=== PATIENT | female | born 1990 | race Two or more races ===

== ENCOUNTER 2020-11-21 12:29 | Outpatient (REF) | payer MEDICAID, SELFPAY ==
[2020-11-21 13:31] LABS: MANUAL DIFF FLAG NO
[2020-11-21 13:35] LABS: Basophils Percent Auto 0.4 % (0-2); Eosinophils Absolute Auto 0.1 X10*3/uL (0.0-0.4); Hematocrit 48.5 % (37-47); Hemoglobin 16.1 g/dl (12.0-16.0); Imm Gran Abs Auto 0.01 X10*3/uL (0.00-0.03); Imm Gran Pct Auto 0.2 % (0.0-0.4); Lymphocytes Absolute Auto 2.5 X10*3/uL (1.2-4.9); Lymphocytes Percent Auto 45.3 % (20-40); Mean Corpuscular HGB Conc 33.2 g/dl (31.0-35.0); Mean Corpuscular Hemoglobin 31.3 pg (27.0-33.0); Mean Corpuscular Volume 94.4 fL (80-98); Mean Platelet Volume 9.9 fL (9.4-12.3); Monocytes Absolute Auto 0.3 X10*3/uL (0.1-1.2); Monocytes Percent Auto 5.5 % (2-11); Neutrophils Absolute Auto 2.5 X10*3/uL (2.0-8.3); Neutrophils Percent Auto 46.6 % (45-73); Platelet Count 296 X10*3/uL (160-400); Red Blood Count 5.14 X10*6/uL (4.20-5.50); Red Cell Distribution Width 12.4 % (11.0-16.0); White Blood Count 5.5 X10*3/uL (4.8-10.8)
[2020-11-21 13:57] LABS: Prothrombin Time 11.7 SEC (10.8-13.0)
[2020-11-21 13:59] LABS: Partial Thromboplastin Time 35.2 SEC (24.1-38.0)
[2020-11-21 14:02] LABS: Alanine Aminotransferase 40 U/L (0-31); Albumin Level 4.8 g/dL (3.5-5.0); Alkaline Phosphatase 74 U/L (39-117); Anion Gap 15 (12-20); Aspartate Amino Transferase 22 U/L (5-31); Bilirubin Total 0.7 mg/dL (0.0-1.0); Blood Urea Nitrogen 9 mg/dL (9-16); Calcium 9.4 mg/dL (8.4-10.2); Carbon Dioxide 26 mmol/L (22-29); Chloride 103 mmol/L (96-108); Estimated Glomerular Filt Rate > 60; Glucose Random 97 mg/dL (60-115); Potassium 4.6 mmol/l (3.3-5.1); Sodium 139 mmol/L (135-145); Total Protein 8.5 g/dL (6.5-8.0)
[2020-11-21 14:10] LABS: HCG Quantitative < 2 mIU/mL
[2020-11-22 10:25] LABS: HIV AB/AG Nonreactive (Nonreactive); HIV Num 1 0.19 S/CO (0.00-0.99)
== END 2020-11-21 12:30 | disposition home or self-care (01) ==
LOC: HO.LAB 12:29
PROVIDERS: Visit Provider Otolaryngology
DX: Z01.812 Encounter for preprocedural laboratory examination (principal)
CPT/HCPCS: 36415; 80053; 84702; 85025; 85610; 85730; 87389

== ENCOUNTER 2020-11-29 10:34 | Outpatient (REF) | payer MEDICAID, SELFPAY ==
[2020-11-29 11:23] LABS: Alanine Aminotransferase 36 U/L (0-31); Albumin Level 4.5 g/dL (3.5-5.0); Alkaline Phosphatase 65 U/L (39-117); Aspartate Amino Transferase 22 U/L (5-31); Bilirubin Direct 0.2 mg/dL (0.0-0.5); Bilirubin Total 0.6 mg/dL (0.0-1.0); Total Protein 7.7 g/dL (6.5-8.0)
== END 2020-11-29 10:35 | disposition home or self-care (01) ==
LOC: HO.LAB 10:34
PROVIDERS: Visit Provider Otolaryngology
DX: Z01.812 Encounter for preprocedural laboratory examination (principal)
CPT/HCPCS: 36415; 80076

== ENCOUNTER 2022-02-15 08:41 | Outpatient (REF) | payer MEDICAID, SELFPAY ==
[2022-02-15 09:09] LABS: MANUAL DIFF FLAG NO
[2022-02-15 09:28] LABS: Basophils Percent Auto 0.5 % (0-2); Eosinophils Absolute Auto 0.3 X10*3/uL (0.0-0.4); Eosinophils Percent Auto 4.1 % (0-4); Hematocrit 43.1 % (37.0-47.0); Hemoglobin 14.3 g/dl (12.0-16.0); Imm Gran Abs Auto 0.02 X10*3/uL (0.00-0.03); Imm Gran Pct Auto 0.3 % (0.0-0.4); Lymphocytes Absolute Auto 2.1 X10*3/uL (1.2-4.9); Lymphocytes Percent Auto 33.6 % (20-40); Mean Corpuscular HGB Conc 33.2 g/dl (31.0-35.0); Mean Corpuscular Hemoglobin 31.6 pg (27.0-33.0); Mean Corpuscular Volume 95.1 fL (80.0-98.0); Monocytes Absolute Auto 0.4 X10*3/uL (0.1-1.2); Monocytes Percent Auto 5.9 % (2-11); Neutrophils Absolute Auto 3.4 x10*3/uL (2.0-8.3); Neutrophils Percent Auto 55.6 % (45-73); Platelet Count 312 X10*3/uL (160-400); Red Blood Count 4.53 X10*6/uL (4.20-5.50); White Blood Count 6.1 X10*3/uL (4.8-10.8)
[2022-02-15 09:35] LABS: Prothrombin Time 11.4 SEC (9.9-13.0)
[2022-02-15 09:38] LABS: Partial Thromboplastin Time 34.4 SEC (24.1-38.0)
[2022-02-15 10:05] LABS: HCG Quantitative < 2 mIU/mL
[2022-02-15 10:15] LABS: Alanine Aminotransferase 28 U/L (0-31); Alkaline Phosphatase 65 U/L (39-117); Anion Gap 11 (12-20); Aspartate Amino Transferase 19 U/L (5-31); Bilirubin Total 0.5 mg/dL (0.0-1.0); Blood Urea Nitrogen 13 mg/dL (9-16); Calcium 9.2 mg/dL (8.4-10.2); Carbon Dioxide 26 mmol/L (22-29); Chloride 105 mmol/L (96-108); Estimated Glomerular Filt Rate > 60; Glucose Random 102 mg/dL (60-115); Potassium 4.5 mmol/L (3.3-5.1); Sodium 137 mmol/L (135-145); Total Protein 7.4 g/dL (6.5-8.0)
[2022-02-17 09:06] LABS: HIV AB/AG Nonreactive (Nonreactive); HIV Num 1 0.07 S/CO (0.00-0.99)
[2022-02-23 01:57] LABS: Cotinine, U 3 ng/mL; Nicotine, U <2 ng/mL
== END 2022-02-15 08:42 | disposition home or self-care (01) ==
LOC: HO.LAB 08:41
PROVIDERS: PCP Family Medicine; Visit Provider Surgery
DX: Z01.812 Encounter for preprocedural laboratory examination (principal)
CPT/HCPCS: 80053; 80323; 84702; 85025; 85610; 85730; 87389

== ENCOUNTER 2022-02-19 15:15 | Outpatient (REF) | payer MEDICAID, SELFPAY ==
--- NOTE | ~2022-02-19 | XR_ITS ---
EXAMINATION: XR CHEST 2 VIEWS CLINICAL INFORMATION: Preprocedural examination. COMPARISON: Prior chest radiographs dated 08/25/2019. TECHNIQUE: Frontal and lateral views of the chest were obtained. FINDINGS: The heart, great vessels, pulmonary vasculature and mediastinum are normal. The lungs show no focal infiltrate, effusion or pneumothorax. There is no acute osseous abnormality. XR/XR chest 2V IMPRESSION: No active cardiopulmonary disease.
--- NOTE | 2022-02-19 15:20 | ECG_ITS ---
Test Reason : PREOP Blood Pressure : / mmHG Vent. Rate : 064 BPM Atrial Rate : 064 BPM P-R Int : 134 ms QRS Dur : 084 ms QT Int : 392 ms P-R-T Axes : 050 044 020 degrees QTc Int : 404 ms Normal sinus rhythm Normal ECG No previous ECGs available Referred By: Neena Lara Electronically Signed By:MAGALY VARELA MD
== END 2022-02-19 15:16 | disposition home or self-care (01) ==
LOC: HO.XRAY 15:15
PROVIDERS: PCP Family Medicine; Visit Provider Surgery
DX: Z01.812 Encounter for preprocedural laboratory examination (principal)
CPT/HCPCS: 71046; 93005

== ENCOUNTER 2022-02-24 14:24 | Outpatient (REF) | payer MEDICAID, SELFPAY ==
[2022-02-24 15:52] LABS: Appearance Urine CLEAR; Color Urine YELLOW; Glucose Urine UA NEG (NEG); Leukocyte Esterase Urine NEG (NEG); Nitrite Urine NEG (NEG); Specific Gravity - Urine 1.025 (1.005-1.025); Urine Blood NEG (NEG); Urine Ketones NEG (NEG); Urine Protein NEG (NEG-TRACE)
== END 2022-02-24 14:25 | disposition home or self-care (01) ==
LOC: HO.LAB 14:24
PROVIDERS: PCP Family Medicine; Visit Provider Surgery
DX: Z01.812 Encounter for preprocedural laboratory examination (principal); Z41.1 Encounter for cosmetic surgery
CPT/HCPCS: 81003

== ENCOUNTER 2023-02-12 09:16 | Outpatient (REF) | payer MEDICAID, SELFPAY ==
--- NOTE | 2023-02-12 09:20 | EMG_ITS ---
Left median and ulnar motor and sensory studies were performed. Left radial sensory study was performed and paraspinal muscles were tested with a needle. IMPRESSION: No significant abnormality noted on this study. MD ALEJANDRO Lugo/MICHAEL / [id number]
== END 2023-02-12 09:17 | disposition home or self-care (01) ==
LOC: HO.NEURO 09:16
PROVIDERS: PCP Family Medicine; Visit Provider Family Medicine
DX: R20.2 Paresthesia of skin (principal)
CPT/HCPCS: 95886; 95909

== ENCOUNTER 2023-08-17 12:36 | Outpatient (REF) | payer MEDICAID, SELFPAY ==
[2023-08-17 14:02] LABS: Estimated Average Glucose 100 mg/dL; Hemoglobin A1c % 5.1 % (<6.0)
== END 2023-08-17 12:37 | disposition home or self-care (01) ==
LOC: HO.HHCL 12:36
PROVIDERS: Visit Provider Family Medicine
DX: E66.9 Obesity, unspecified (principal)
CPT/HCPCS: 36415; 83036

== ENCOUNTER 2024-03-21 11:06 | Outpatient (REF) | payer MEDICAID, SELFPAY ==
[2024-03-21 13:41] LABS: Hematocrit 41.9 % (37.0-47.0); Hemoglobin 14.2 g/dl (12.0-16.0); Mean Corpuscular HGB Conc 33.9 g/dl (31.0-35.0); Mean Corpuscular Hemoglobin 31.9 pg (27.0-33.0); Mean Corpuscular Volume 94.2 fL (80.0-98.0); Mean Platelet Volume 9.9 fL (9.4-12.3); Platelet Count 289 X10*3/uL (160-400); Red Blood Count 4.45 X10*6/uL (4.20-5.50); Red Cell Distribution Width 12.6 % (11.0-16.0); White Blood Count 4.5 X10*3/uL (4.8-10.8)
[2024-03-21 14:03] LABS: Estimated Average Glucose 88 mg/dL; Hemoglobin A1c % 4.7 % (<6.0); Total Hemoglobin (HGBA1C) 3542.3587 umol/L
[2024-03-21 14:21] LABS: Alanine Aminotransferase 41 U/L (0-31); Albumin Level 3.9 g/dL (3.5-5.0); Alkaline Phosphatase 68 U/L (39-117); Anion Gap 12 (12-20); Aspartate Amino Transferase 23 U/L (5-31); Bilirubin Direct 0.2 mg/dL (0.0-0.5); Bilirubin Total 0.4 mg/dL (0.0-1.0); Blood Urea Nitrogen 11 mg/dL (9-16); Calcium 9.6 mg/dL (8.4-10.2); Carbon Dioxide 26 mmol/L (22-29); Chloride 105 mmol/L (96-108); Cholesterol 140 mg/dL (<200); Estimated Glomerular Filt Rate > 60; Free T4 (Free Thyroxine) 0.85 ng/dL (0.71-1.85); Glucose Random 72 mg/dL (60-115); HDL Cholesterol 39 mg/dL (>40); LDL Cholesterol Calculated 88 mg/dL (<100); Sodium 139 mmol/L (135-145); Thyroid Stimulating Hormone 0.61 uIU/mL (0.32-4.0); Total Protein 7.5 g/dL (6.5-8.0); Triglycerides 66 mg/dL (<150)
[2024-03-22 04:16] LABS: HBS Num1 75.78 mIU/mL (0-7.99); HBsAGNum1 0.31 S/CO (0.00-0.99); HIV AB/AG Nonreactive (Nonreactive); HIV Num 1 0.04 S/CO (0.00-0.99); Hepatitis B Surface Antigen Negative (Negative); ~HepC Num1 0.12 S/CO (0.00-0.79); ~Hepatitis B Surface Antibody REACTIVE (Nonreactive); ~Hepatitis C Antibody Nonreactive (Nonreactive)
[2024-03-22 04:21] LABS: Hepatitis A Antibody IgG Nonreactive (Nonreactive); ~Hepatitis A Antibody IgG 0.45 S/CO (0.00-0.99)
[2024-03-22 11:54] LABS: CT PCR NOT DETECTED (Not Detect.); NG PCR NOT DETECTED (Not Detect.)
[2024-03-22 12:23] LABS: RPR Rapid Plasma Reagin NON-REACTIVE (NON-REACTIVE)
== END 2024-03-21 11:07 | disposition home or self-care (01) ==
LOC: HO.HHCL 11:06
PROVIDERS: Visit Provider Family Medicine
DX: Z00.00 Encounter for general adult medical examination without abnormal findings (principal); Z11.4 Encounter for screening for human immunodeficiency virus [HIV]; M54.42 Lumbago with sciatica, left side; M54.41 Lumbago with sciatica, right side; G89.29 Other chronic pain; R20.2 Paresthesia of skin; E16.2 Hypoglycemia, unspecified; L65.9 Nonscarring hair loss, unspecified; E66.9 Obesity, unspecified
CPT/HCPCS: 0353U; 36415; 80048; 80061; 80076; 82306; 83036; 84439; 84443; 85027; 86592; 86706; 86708; 86803; 87340; 87389

== ENCOUNTER 2024-09-06 15:52 | Outpatient (REF) | payer MEDICAID, SELFPAY ==
--- NOTE | ~2024-09-06 | XR_ITS ---
EXAMINATION: XR CERVICAL SPINE CLINICAL INFORMATION: Headache and neck pain without trauma COMPARISON: None TECHNIQUE: 3 views of the cervical spine were obtained. FINDINGS: There are no prevertebral soft tissue or bony abnormalities demonstrated. No compression fractures or subluxations are identified. Alignment is maintained at the atlanto-axial articulation. The disc spaces are preserved. No endplate changes are seen. The prevertebral soft tissues are normal. The foramina are patent. XR/XR cervical spine 3V IMPRESSION: Unremarkable examination. Electronically signed by: Lori Phillip MD 09/07/2024 03:30 PM EDT
== END 2024-09-06 15:53 | disposition home or self-care (01) ==
LOC: HO.HHCX 15:52
PROVIDERS: Visit Provider Internal Medicine
DX: R51.9 Headache, unspecified (principal)
CPT/HCPCS: 72040

== ENCOUNTER 2024-09-06 16:22 | Outpatient (REF) | payer MEDICAID, SELFPAY ==
[2024-09-06 17:36] LABS: MANUAL DIFF FLAG NO
[2024-09-06 18:00] LABS: Basophils Percent Auto 0.3 % (0-2); Eosinophils Absolute Auto 0.2 X10*3/uL (0.0-0.4); Eosinophils Percent Auto 2.6 % (0-4); Hematocrit 39.1 % (37.0-47.0); Hemoglobin 13.3 g/dl (12.0-16.0); Imm Gran Abs Auto 0.02 X10*3/uL (0.00-0.03); Imm Gran Pct Auto 0.3 % (0.0-0.4); Mean Corpuscular Hemoglobin 31.9 pg (27.0-33.0); Mean Corpuscular Volume 93.8 fL (80.0-98.0); Mean Platelet Volume 9.7 fL (9.4-12.3); Monocytes Absolute Auto 0.4 X10*3/uL (0.1-1.2); Monocytes Percent Auto 6.7 % (2-11); Neutrophils Absolute Auto 3.6 x10*3/uL (2.0-8.3); Neutrophils Percent Auto 58.1 % (45-73); Platelet Count 325 X10*3/uL (160-400); Red Blood Count 4.17 X10*6/uL (4.20-5.50); Red Cell Distribution Width 12.1 % (11.0-16.0); White Blood Count 6.2 X10*3/uL (4.8-10.8)
== END 2024-09-06 16:23 | disposition home or self-care (01) ==
LOC: HO.HHCL 16:22
PROVIDERS: Visit Provider Internal Medicine
DX: R51.9 Headache, unspecified (principal)
CPT/HCPCS: 36415; 85025

== ENCOUNTER 2024-12-21 14:33 | Outpatient (REF) | payer MEDICAID, SELFPAY ==
--- OUTSIDE RECORDS SUMMARY | 2024-12-21 15:44 | XMS_ITS | Encounter Summary ---
Author Organization [employer] Address [address] [facility] [address] [place] [address] Care Team Providers Care Beauty Shop Manager Name Role Phone Emilia Bee DO Primary Care Provider [phone] Encounter Details Date Type Department Care Team (Late st Contact Info) Description 12/21/2024 9:00 AM EST Office Visit [facility] MEDICINE [address] [place], [place] [phone] Emilia Bee DO [address] [place], [place] [phone] Chronic migraine (Primary Dx); Chronic bilateral low back pain without sciatica; Acute UTI; BMI 27.0-27.9,adult Social History Tobacco Use Types Packs/Day Years Used Date Smoking Tobacco: Never Passive Smoke Exposure: Never Smokeless Tobacco: Never Tobacco Cessation:Counseling Given: Not Answered Alcohol Use Standard Drinks/Week Comments Never 0 (1 standard drink = 0.6 oz pur e alcohol) Depression Answer Date Recorded Patient Health Questionnaire-9 Score 0 12/21/2024 Patient Health Questionnaire-9 Score 0 12/21/2024 Last PHQ-9: Questionnaire Data Not on file 0 12/21/2024 Housing Stability Answer Date Recorded What is your housing situation today? I have hilda figueroa 09/07/[address] you li ve. Do you have problems with any of the following? None of the above 09/07/2023 Food Insecurity Answer Date Recorded Within the past 12 months, y ou worried that your food would run out before you got money to buy more: Never True 09/07/2023 Within the past 12 months,th e food you bought just didn't last and you didn't have enough money to get more: Never True Transportation Answer Date Recorded In the past 12 months, has l ack of transportation kept you from medical appts, meetings, work or from getting things needed for daily living? No 09/07/2023 Utilities Answer Date Recorded In the past 12 months, has t he electric, gas, oil or water company threatened to shut off services in your home? No 09/07/2023 Depression Answer Date Recorded Patient Health Questionnaire-2 Score 0 12/21/2024 Internet Access Answer Date Recorded Internet Access Q1 Yes 12/21/2024 Internet Access Q2 Not on file 12/21/2024 Comments No Sex and Gender Information Value Date Recorded Sex Assigned at Female 09/15/2022 10:36 AM EDT Legal Sex Female 10:36 AM EDT Gender Identity Choose not to disclose 10:36 AM EDT Sexual Orientation Choose not to disclose 2021 10:36 AM EDT documented as of this encounter Last Filed Vital Signs Vital Sign Reading Time Taken Comments Blood Pressure 111/68 12/21/2024 9:02 AM EST Pulse 80 12/21/2024 9:02 AM EST Temperature 36.2 ??C (97.1 ??F) 12/21/2024 9:02 AM ES T Respiratory Rate 18 12/21/2024 9:02 AM EST Oxygen Saturation 99% 12/21/2024 9:02 AM EST Inhaled Oxygen Concentration - - Weight 72.3 kg (159 lb 6 oz) 12/21/2024 9:02 AM EST Height 162.6 cm (5' 4 ) 12/21/2024 9:02 AM EST Body Mass Index 27.36 12/21/2024 9:02 AM EST documented in this encounter Plan of Treatment Upcoming Encounters Date Type Department Care Team (Late st Contact Info) Description 01/20/2025 2:00 PM EST Office Visit [facility] MEDICINE [address] [place], [place] [phone] Denny Connors MD [address] [place] [address] Scheduled Orders Name Type Priority Associated Diagnoses Orde r Schedule Culture, Urine, Routine Microbiology Routine Acute UTI Ordered: 12/21/2024 documented as of this encounter Procedures Procedure Name Priority Date/Time Associated Diagnosis Comments POCT URINALYSIS DIPSTICK Routine 12/21/2024 9:51 AM EST Acute UTI documented in this encounter Results * (ABNORMAL) POCT Urinalysis (12/21/2024 9:51 AM EST) Color, UA Yellow Clarity, UA Cloudy Glucose, UA Trace Comment:100mg Bilirubin, UA Trace Comment:Small Ketones, UA Positive Comment:Trace Spec Grav, UA 1.020 Blood, UA Negative Negative, None Detected pH, UA 5.5 Protein, UA Trace Comment:100mg Urobilinogen, UA 4.0 Leukocytes, UA Trace Negative, Rare, Trace Comment:Large Nitrite, UA Positive(A) Negative, None Detected QC Media Lot # [id number] Lot# Expiration Date Urine 12/21/2024 9:51 AM EST Emilia Bee DO POINT OF CARE TEST ENTER/ALEXX T ORDERABLES Final Result documented in this encounter Visit Diagnoses Diagnosis Chronic migraine- Primary Chronic bilateral low back pain without sciatica Acute UTI Urinary tract infection, site not specified BMI 27.0-27.9,adult documented in this encounter Additional Health Concerns Assessment Noted Time PHQ-9 Depression Total Score: 0 12/21/19 25 9:06 AM EST documented as of this encounter Care Teams Beauty Shop Manager Relationship Specialty Start Date End Date Emilia Bee DO [address] [place] [address] PCP - General Family Medicine 10/10/20 documented as of this encounter
--- OUTSIDE RECORDS SUMMARY | 2024-12-21 15:44 | XMS_ITS | Encounter Summary ---
Author Organization [email or web address] Address [address] [facility] [address] [place] [address] Care Team Providers Care Billboard Erector Name Role Phone Emilia Bee DO Primary Care Provider [phone] Encounter Details Date Type Department Care Team (Late st Contact Info) Description 09/14/2023 Abstract [facility] MEDICINE [address] [place], [place] [phone] Emilia Bee DO [address] [place], [place] [phone] Social History Tobacco Use Types Packs/Day Years Used Date Smoking Tobacco: Never Passive Smoke Exposure: Never Smokeless Tobacco: Never Alcohol Use Standard Drinks/Week Comments Never 0 (1 standard drink = 0.6 oz pur e alcohol) Depression Answer Date Recorded Patient Health Questionnaire-9 Score 0 11/04/2022 Housing Stability Answer Date Recorded What is [...] Date Recorded Patient Health Questionnaire-2 Score 0 11/04/2022 Comments Unknown Sex and Gender Information Value Date Recorded Sex Assigned at Female 09/15/2022 10:36 AM EDT Legal Sex Female 10:36 AM EDT Gender Identity Choose not to disclose 10:36 AM EDT Sexual Orientation Choose not to disclose 2021 10:36 AM EDT documented as of this encounter Plan of Treatment Upcoming Encounters Date Type Department Care Team (Late st Contact Info) Description 01/20/2025 2:00 PM EST Office Visit [facility] MEDICINE [address] [place] [address] Denny Connors MD [address] [place] [address] documented as of this encounter Visit Diagnoses Not on filedocumented in this encounter Additional Health Concerns Assessment Noted Time PHQ-9 Depression Total Score: 0 11/04/20 22 9:56 AM EST documented as of this encounter Care Teams Billboard Erector Relationship Specialty Start Date End Date Emilia Bee DO [address] [place] [address] PCP - General Family Medicine 10/10/20 documented as of this encounter
--- OUTSIDE RECORDS SUMMARY | 2024-12-21 15:44 | XMS_ITS | Continuity of Care Document ---
Author Organization [facility] Address [address] [place] [address] Phone Care Team Providers Care Foreign Exchange Services Manager Name Role Phone CHS, Nurse Unavailable Unavailable [...] Diagnoses Date Provider Providers Copied on Encounter [facility] /[facility], [address] [place] [address], [address], [place] tel:[phone] C GRD FCM No Information 3 [facility] Nurse. [address] [place] [address], [id number] , [place]. tel:[phone] [facility] /[facility], [address] [place] [address], [address], [place] tel:[phone] C GRD FCM No Information 2 [facility] Nurse. [address] [place] [address], [id number] , [place]. tel: [phone] [facility] /[facility], [address] [place] [address], [address], [place] tel:[phone] C GRD FCM No Information 2 [facility] Nurse. [address] [place] [address], [id number] , [place]. tel: [phone] RC Options [facility] /[facility], [address] [place] [address], [address], [place] tel:[phone] P BMB Family Planning Test Options/Co unsel (chief complaint) Encounter for family planning adviceEncounter for test, result positiveEncounter for STI screening 2 PCS Other Non Billable. [address] [place] [address], [id number] , [place]. tel: [phone] [facility] /[facility], [address] [place] [address], [address], [place] tel:[phone] C GRD FCM No Information 0 [facility] Nurse. [address] [place] [address], [id number] , [place]. tel: [phone] Family History Family Member Type Diagnosis Age At Onset No Information Payers Payer name Insurance type Covered republican ID Yovani mitchell(s) [facility] [id number] Medicaid [id number] Social History Type Description Quantity Date Captured Comments Alcohol Use Details Unknown Caffeine Use Details Unknown Tobacco Use Status No Information Smoking Status No Information Sex Female Sexual Orientation Straight or heterosexual Jul Gender Identity Female Chief Complaint And Reason For Visit No Information Plan Of Treatment Date Type Action Status Goal Influenza vaccine. Due on due Goal HPV. Due on due Goal FIT-DNA. Due on due Goal Pap/HPV testing. Due on due Goal Unhealthy drug use screening . Due on due Goal Depression screening. Due on due Goal Health Literacy. Due on due Goal Self Management Goals. Due o n due Goal FOBT. Due on due Goal Colonoscopy. Due on due Goal CT-Colonography. Due on due Goal FIT. Due on due Goal Hepatitis C screening. Due o n due Goal Nutritional Screening Assess ment. Due on due Goal Dental exam. Due on due Goal HIV. Due on due Goal Tdap. Due on due Goal Hep C AB-8472. Due on due Goal Pap/HPV testing. Due on due Goal Health Literacy. Due on due Goal FOBT. Due on due Goal HIV. Due on due Goal Self Management Goals. Due o n due Goal Nutritional Screening Assess ment. Due on due Goal Influenza vaccine. Due on due Goal Depression screening. Due on due Goal Hep C [id number]. Due on due Goal Colonoscopy. Due on 022 due Goal Tdap. Due on due Goal Dental exam. Due on due Goal FIT. Due on due Goal Hepatitis C screening. Due o n due Goal CT-Colonography. Due on due Goal HPV. Due on due Goal FIT-DNA. Due on due Goal Unhealthy drug use screening . Due on due Goal Nutritional Screening Assess ment. Due on due Goal Pap/HPV testing. Due on due Goal Tdap. Due on due Goal Self Management Goals. Due o n due Goal Influenza vaccine. Due on due Goal Hep C AB-8472. Due on due Goal Depression screening. Due on due Goal Health Literacy. Due on due Goal Dental exam. Due on due Goal HIV. Due on due Referral Ordered: Obstetrics (related to Encounter for test, result positive) ordered History Of Present Illness Encounter Date Complaint History Of Prese nt Illness Test Options/Machine Assembler Supervisor U CG Positive and control acceptable, LMP [...]
--- OUTSIDE RECORDS SUMMARY | 2024-12-21 15:44 | XMS_ITS | Encounter Summary ---
Author Organization [employer] Address [address] [facility] [address] [place] [address] Care Team Providers Care Shiatsu Therapist Name Role Phone DmitriyEmilia brown Primary Care Provider [phone] Encounter Details Date Type Department Care Team (Late Contact Info) Description 12/04/2022 Orders Only [address] [address] Emilia Bee DO [address] [place] [phone] Social History Tobacco Use Types Packs/Day Years Used Date Smoking Tobacco: Never Passive Smoke Exposure: Never Alcohol Use Standard Drinks/Week Comments Never 0 (1 standard drink = 0.6 oz pur e alcohol) Depression Answer Date Recorded Patient Health Questionnaire-9 Score 0 11/04/2022 Depression Answer Date Recorded Patient Health Questionnaire-2 Score 0 11/04/2022 Comments Unknown Sex and Gender Information Value Date Recorded Sex Assigned at Female 09/15/2022 10:36 AM EDT Legal Sex Female 10:36 AM EDT Gender Identity Choose not to disclose 10:36 AM EDT Sexual Orientation Choose not to disclose 2021 10:36 AM EDT COVID-19 Exposure Response Date Recorded In the last 10 days, have yo u been in contact with someone who was confirmed or suspected to have Coronavirus/COVID-19? No / Unsure 11/26/2022 9:47 AM EST documented as of this encounter Plan of Treatment Upcoming Encounters Date Type Department Care Team (Late Contact Info) Description 01/20/2025 2:00 PM EST Office Visit [facility] MEDICINE [address] [place] [address] Denny Connors MD [address] [place] [address] documented as of this encounter Visit Diagnoses Not on filedocumented in this encounter Additional Health Concerns Assessment Noted Time PHQ-9 Depression Total Score: 0 11/04/20 22 9:56 AM EST documented as of this encounter Care Teams Shiatsu Therapist Relationship Specialty Start Date End Date Emilia Bee DO [address] [place] [address] PCP - General Family Medicine 10/10/20 documented as of this encounter
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
--- OUTSIDE RECORDS SUMMARY | 2024-12-21 15:44 | XMS_ITS | Encounter Summary ---
Author Organization [employer] Address [address] [facility] [address] [place] [address] Care Team Providers Care Bargeman Name Role Phone Emilia Bee DO Primary Care Provider [phone] Encounter Details Date Type Department Care Team (Latest Contact Info) Description 12/21/2024 Travel Social History Tobacco Use Types Packs/Day Years [...] Description 01/20/2025 2:00 PM EST Office Visit [facility] [address] [place] [address] Denny Connors MD [address] [place] [address] documented as of this encounter Visit Diagnoses Not on filedocumented in this encounter Additional Health Concerns Assessment Noted Time PHQ-9 Depression Total Score: 0 12/21/19 25 9:06 AM EST documented as of this encounter Care Teams Bargeman Relationship Specialty Start Date End Date Emilia Bee DO [address] [place] [address] PCP - General Family Medicine 10/10/20 documented as of this encounter
--- OUTSIDE RECORDS SUMMARY | 2024-12-21 15:44 | XMS_ITS | Clinical Summary ---
Author Organization [facility] Address [address] [place] [address] Care Team Providers Care Scaffold Erector Name Role Phone DmitriyEmilia brown Primary Care Provider [phone] Medical History Medical History Date Comments Obesity DX:Obesity History of gestational diabetes DX:History of gestational diabetes PCOS (polycystic ovarian syndrome) DX:PCOS (polycystic ovarian syndrome) Chronic bilateral low back pain DX:Chronic bilateral low back pain Social History Tobacco Use Types Packs/Day Years Used Date Smoking Tobacco: Never Smokeless Tobacco: Never Sex and Gender Information Value Date Recorded Sex Assigned at Not on file Gender Identity Not on file Sexual Orientation Not on file Obstetrics History Last Filed Vital Signs Vital Sign Reading Time Taken Comments Blood Pressure - - Pulse - - Temperature - - Respiratory Rate - - Oxygen Saturation - - Inhaled Oxygen Concentration - - Weight 80.8 kg (178 lb 3.2 oz) 04/24/2023 2:58 P M EDT Height 162.6 cm (5' 4 ) 04/24/2023 2:58 PM EDT Body Mass Index 30.59 04/24/2023 2:58 PM EDT Plan of Treatment Health Maintenance Due Date Last Done Comments Cervical Cancer Screening: P ap Smear 02/06/2012 Cholesterol Screening (Lipid Panel) 10/19/2022 Depression Screening 10/19/2022 HIV Screening 10/19/2022 Hepatitis C Screening 10/19/2022 Social Influencers of Health Screening 10/19/2022 Hepatitis B Vaccines (2 of 3 - 19+ 3-dose series) 05/04/2023 04/06/2023 DTaP,Tdap,and Td Vaccines (2 - Td or Tdap) 12/06/2023 12/06/2013 COVID-19 Vaccine (3 - 2023-2 5 season) 2024 01/14/2022, 12/24/2021 Influenza Vaccine (#1) 2024 9, 08/11/2013 Varicella Vaccines Aged Out 03/23/2019 No longer eligible based on patient's age to complete this topic MMR Vaccines Aged Out 04/06/2023, 03/23/2019 No longer eligible based on patient's age to complete this topic HIB Vaccines Aged Out No longer eligi ble based on patient's age to complete this topic HPV Vaccines Aged Out No longer eligi ble based on patient's age to complete this topic Hepatitis A Vaccines Aged Out No long er eligible based on patient's age to complete this topic IPV Vaccines Aged Out No longer eligi ble based on patient's age to complete this topic Meningococcal ACWY Vaccine Aged Out N o longer eligible based on patient's age to complete this topic Pneumococcal Vaccine: Pediatrics (0 to 5 Years) and At-Risk Patients (6 to 64 Years) Aged Out No longer eligible b ased on patient's age to complete this topic RSV Immunization Patients Under 20 months Aged Out No longer eligible b ased on patient's age to complete this topic Care Teams Scaffold Erector Relationship Specialty Start Date End Date Emilia Bee DO [address] [place] [address] PCP - General 04/16/23
--- OUTSIDE RECORDS SUMMARY | 2024-12-21 15:44 | XMS_ITS | Encounter Summary ---
Author Organization [employer] Address [address] [facility] 7t [place] [address] Care Team Providers Care Spectrographic Analyst Name Role Phone YefriEmilia gupta Primary Care Provider [phone] Encounter Details Date Type Department Care Team (Late Contact Info) Description 11/11/[address] [phone] Emilia Bee DO [address] [place] [address] [phone] Social History Tobacco Use Types Packs/Day Years [...] suspected to have Coronavirus/COVID-19? No / Unsure 11/04/2022 9:44 AM EST documented as of this encounter Plan of Treatment Upcoming Encounters Date Type Department Care Team (Late Contact Info) Description 01/20/2025 2:00 PM EST Office Visit [address] [phone] Denny Connors MD [address] [place] [address] documented as of this encounter Visit Diagnoses Not on filedocumented in this encounter Additional Health Concerns Assessment Noted Time PHQ-9 Depression Total Score: 0 11/04/20 22 9:56 AM EST documented as of this encounter Care Teams Spectrographic Analyst Relationship Specialty Start Date End Date Emilia Bee DO [address] [place] [address] PCP - General Family Medicine 10/10/20 documented as of this encounter
--- OUTSIDE RECORDS SUMMARY | 2024-12-21 15:44 | XMS_ITS | Encounter Summary ---
Author Organization [employer] Address [address] [place] [address] [address] [place] [address] Care Team Providers Care Quenching Machine Operator Name Role Phone Emilia Bee DO Primary Care Provider [phone] Encounter Details Date Type Department Care Team (Late Contact Info) Description 04/08/2023 [facility] Information Management [address] [place] [address] Emilia Bee DO [address] [place] [address] Social History Tobacco Use Types Packs/Day Years [...] suspected to have Coronavirus/COVID-19? No / Unsure 04/06/2023 2:24 PM EDT documented as of this encounter Plan of Treatment Upcoming Encounters Date Type Department Care Team (Late Contact Info) Description 01/20/2025 2:00 PM EST Office Visit [facility] [address] [place] [address] Denny Connors MD [address] [place] [address] documented as of this encounter Visit Diagnoses Not on filedocumented in this encounter Additional Health Concerns Assessment Noted Time PHQ-9 Depression Total Score: 0 11/04/20 22 9:56 AM EST documented as of this encounter Care Teams Quenching Machine Operator Relationship Specialty Start Date End Date Emilia Bee DO [address] [place] [address] PCP - General Family Medicine 10/10/20 documented as of this encounter
== END 2024-12-21 14:34 | disposition home or self-care (01) ==
LOC: HO.HHCLNP 14:33
PROVIDERS: Visit Provider Family Medicine
DX: N39.0 Urinary tract infection, site not specified (principal)
CPT/HCPCS: 87086

== ENCOUNTER 2025-10-23 11:44 | Emergency (ER) | payer MEDICAID, SELFPAY ==
--- OUTSIDE RECORDS SUMMARY | 2023-02-12 08:52 | XMS_ITS | Continuity of Care Document ---
Author Organization [facility] Address [address] [place] [address] Phone Care Team Providers Care Tobacco Sprayer Name Role Phone CHS, Nurse Unavailable Unavailable Allergies, Adverse Reactions, Alerts Substance Reaction Status Criticality No Known Allergies Active No Inform ation Procedures Procedure Date care atrisk assessm care atrisk assessm Positive URINE TEST 2 RC Options RC STD Education RC HIV Education Counselor Visit Only A-SPECIMEN HANDLING As per patient privacy policy some of the clinical information may not be visible. Advance Directives Directive Yes / No Effective Date File Name No Information Encounters Encounter Description Practice Location Reason(s) For Visit Diagnoses Date Provider Providers Copied on Encounter [facility] /[facility], [address] [place] [address], [id number], [place] tel:[phone] C GRD FCM No Information 3 [facility] Nurse. [address] [place] [address], [id number] , [place]. tel:[phone] [facility] /[facility], [address] [place] [address], [address], [place] tel:[phone] C GRD FCM No Information 2 [facility] Nurse. [address] [place] [address], [id number] , [place]. tel: [phone] [facility] /[facility], [address] [place] [address], [address], [place] tel:[phone] C GRD FCM No Information 2 [facility] Nurse. [address] [place] [address], [id number] , [place]. tel: [phone] RC Options [facility] /[facility], [address] [place] [address], [address], [place] tel:[phone] P BMB Family Planning Test Options/Co unsel (chief complaint) Encounter for family planning adviceEncounter for test, result positiveEncounter for STI screening 2 PCS Other Non Billable. [address] [place] [address], [id number] , [place]. tel: [phone] [facility] /[facility], [address] [place] [address], [address], [place] tel:[phone] C GRD FCM No Information 0 [facility] Nurse. [address] [place] [address], [id number] , [place]. tel: [phone] Family History Family Member Type Diagnosis Age At Onset No Information Payers Payer name Insurance type Covered republican ID Yovani whittenvirgie(s) [facility] [id number] Medicaid [id number] Social History Type Description Quantity Date Captured Comments Alcohol Use Details Unknown Caffeine Use Details Unknown Tobacco Use Status No Information Smoking Status No Information Sex Female Sexual Orientation Straight or heterosexual Jul Gender Identity Female Chief Complaint And Reason For Visit No Information Plan Of Treatment Date Type Action Status Goal FIT-DNA. Due on due Goal Health Literacy. Due on due Goal Self Management Goals. Due o n due Goal FOBT. Due on due Goal Colonoscopy. Due on [address]-Colonography. Due on due Goal Pap/HPV testing. Due on due Goal Unhealthy drug use screening . Due on due Goal Depression screening. Due on due Goal Influenza vaccine. Due on due Goal HPV. Due on due Goal FIT. Due on due Goal Hep C AB-8472. Due on due Goal Hepatitis C screening. Due o n due Goal Nutritional Screening Assess ment. Due on due Goal Dental exam. Due on 023 due Goal HIV. Due on due Goal Tdap. Due on due Goal Pap/HPV testing. Due on due Goal Influenza vaccine. Due on Oc due Goal Depression screening. Due on due Goal Hep C [id number]. Due on due Goal Colonoscopy. Due on 022 due Goal Health Literacy. Due on due Goal FOBT. Due on due Goal HIV. Due on due Goal Self Management Goals. Due o n due Goal Nutritional Screening Assess ment. Due on due Goal Tdap. Due on due Goal FIT-DNA. Due on due Goal Unhealthy drug use screening . Due on due Goal Dental exam. Due on due Goal FIT. Due on due Goal Hepatitis C screening. Due o n due Goal CT-Colonography. Due on due Goal HPV. Due on due Goal Hep C [id number]. Due on due Goal Influenza vaccine. Due on due Goal Self Management Goals. Due o n due Goal Tdap. Due on due Goal Pap/HPV testing. Due on due Goal Nutritional Screening Assess ment. Due on due Goal Depression screening. Due on due Goal Health Literacy. Due on due Goal Dental exam. Due on due Goal HIV. Due on due Referral Ordered: Obstetrics (related to Encounter for test, result positive) ordered History Of Present Illness Encounter Date Complaint History Of Prese nt Illness Test Options/Optimization Manager U CG Positive and control acceptable, LMP 05/29/2022 RAVINDRA 03/05/23 Pt states seeking . All options discussed. Patient firm in her decision to continue and raise. Encouraged prompt care and vitamins with folic acid. Pt consult on negative impact of smoking/drugs/alcohol consumption/lead and other toxic chemicals/substances and exposure to x-rays. Nutrition pamphlet discussed and given. Patient counseled on OTC meds, STI/HIV- condoms declined. Pt referred to ER if any unusual cramping or bleeding occurs. Verification of given. Pt referred for WIC/MPE. BMB PNC HX declined- pt states will verify coverage with insurance first and call back to scheduled if needed. Discussed importance of STI testing when engaging in unprotected I/C. Pt. accepted to be tested for Chlamydia/Gonorrhoea- Urine sample sent to lab for processing. Instructions Date Instruction Additional Infor mation No Information Assessments Type Assessment Date No Information Patient Care Teams Name Effective Dates (start - stop) Status Members No Information
[2025-10-23 12:10] VITALS: BP 153/73; PULSE 88; RESP 16; TEMP 36.3; O2SAT 98; BMI 28.5
--- NOTE | 2025-10-23 12:16 | ED_ITS ---
HPI - General Adult General Chief complaint: General Medical Stated complaint: breast pain Time Seen by Provider: 10/23/25 16:49 History of Present Illness ED Provider: Mariel Browning NP HPI narrative: 35-year- old female, medical history that is significant for surgical placement of bilateral breast implants performed in [facility] in 2020, complicated by infection postoperatively, presents to the ED with her parents for evaluation reporting bilateral breast pain. Patient reports that she saw her primary care provider 3 days ago, who ordered her an outpatient mammogram, that is scheduled for November 14, 2025. She contacted the mammogram department today as she reportedly felt increasing pain over the weekend, most severe on the left side, and a lump. The mammogram department informed her that if there was a problem with the breast implants, they would be unable to perform the mammogram. The patient reportedly feels as though her breasts are very heavy, like she could milk a baby . She denies chance of . Reports that her primary care provider gave her a muscle relaxer and topical cream, which has been helping. Denies any fever, chills. Denies chest pain or pressure, shortness of breath, abdominal pain, nausea or vomiting, urinary complaints. The pain began about 1 week ago, there was no direct trauma to the breasts, or injury to the area to create such pain. Related Data Previous Rx's ?Medication ?Instructions ?Recorded oxycodone 5 mg tablet 5 mg PO Q8H PRN pain 5 days #10 10/23/25 tabs Allergies Allergy/AdvReac Type Severity Reaction Status Date / Time No Known Allergies Allergy Verified 10/23/25 12:13 Review of Systems 2 Review of Systems: ROS is otherwise negative unless mentioned in HPI. Physical Exam ED Exam Exam: Nursing notes and vital signs reviewed. Constitutional: Well-appearing, NAD. Alert. Oriented X3. Eyes: EOMI. ENT: Pharynx normal. Neck: Normal inspection. Neck supple. CVS: Pulses normal. Chest: Bilateral breasts with appearance of bottoming out of the implants. Soft, mobile, squishy material felt to the bottom of the bilateral breasts. Scars present externally to these locations. Respiratory: No respiratory distress. Skin: Skin warm and dry. Normal skin color. Extremities: No lower extremity edema. Neuro: Oriented X 3. No motor deficit. Vital Signs: Vital Signs - 24 hr 10/23/25 12:10 Temperature 97.4 F Pulse Rate 88 Respiratory Rate 16 Blood Pressure 153/73 H Pulse Oximetry 98 Oxygen Delivery Method Room Air BMI result Body Mass Index 28.5 Course Course Course Narrative: RME: 5 yold female healthy presents to the ED for bilateral breast pain, but especially on the left. patient feels mas/lump on breast. Patient is concerened due history of breast implants. labs, EKG, US ordered. 1:00pm. cryptologic technician technical called states ultrasound could not be done. First of all patient's went to [facility] who informed due to her having a breast splint she will need an outpatient MRI. Secondly or near ultrasound would not show anything what the implant and they are in a train to look for abnormalities in the breast implant. Patient will need outpatient workup. Medications Administered Discontinued Medications Generic Name Dose Route Start Last Admin Trade Name Freq PRN Reason Stop Dose Admin Acetaminophen 975 mg 10/23/25 17:29 10/23/25 17:35 Acetaminophen 325 Mg Tablet PO 10/23/25 17:30 975 mg ONCE ONE Administration Oxycodone HCl 5 mg 10/23/25 17:29 10/23/25 17:34 Oxycodone Hcl Immed Release 5 Mg Tablet PO 10/23/25 17:30 5 mg ONCE ONE Administration Medical Decision Making Medical Decision Making MDM Narrative: 5:26 PM 10/23/2025 (Mariel Browning, JJ): Upon my assessment, she overall appears well , though bilaterally it does appear that she has the bottoming out presentation of both implants. There is soft, squishy, mobile material to the bilateral bottom of the breasts, and her nipples are higher riding than to be expected. Additionally, she has external scarring of the skin bilaterally on the underside of the breast tissue, where she tells me she has had previous infections/ her initial postoperative infection. She reports that the pain is worse when trying to lie flat in the evening. There is no palpable mass, there is no firmness, no lump Onto either breast. When she lies flat, it does appear that the implants move up higher on the chest. She tells me this causes the most pain. Clinically I have no concern for infection, there is no redness, warmth. Presentation is in the absence of fever, chills. Her pain is likely due to breast implant discomfort. I have provided her a dose of oxycodone, Tylenol while in the ED as she has already trialed oral NSAIDs as well as topical creams, muscle relaxers. I recommended that she follows up with her primary care provider tomorrow, and request that they schedule an outpatient MRI. I did consider performing CT imaging of the chest while in the ED, but this would not visualize the breast implants appropriately or aid in diagnosis. The triage provider did attempt to order breast US which cannot be done in our ED. Given there is no signs of infection, there is no indication for additional workup in the ED. She can be managed outpatient with PCP, breast surgery, and have an outpatient MRI and mammogram. I do recommend that she has a MRI prior to the mammogram, as if the implants are blocking breast tissue, mammogram we will not be helpful in diagnoses. I did provide her a prescription for oxycodone with recommendations to use this only as needed for severe pain. She is agreeable to plan of care. Provided return precautions to the ED. Differential Diagnosis Differential Diagnoses: The differential diagnosis associated with the presentation includes implant infection, implant malfunction/malposition/movement Admission/Observation Consideration of admission/observation: Escalation of care including admission/observation considered (Not indicated) Lab Data MDM Lab Attestation statement: I reviewed the patient's lab results. (Reassuring overall. ) 10/23/25 12:43 10/23/25 12:42 Labs: Lab Results 10/23/25 10/23/25 Range/Units 12:42 12:43 WBC 5.8 (4.8-10.8) X10*3/uL RBC 4.39 (4.20-5.50) X10*6/uL Hgb 13.7 (12.0-16.0) g/dl Hct 40.7 (37.0-47.0) % MCV 92.7 (80.0-98.0) fL MCH 31.2 (27.0-33.0) pg MCHC 33.7 (31.0-35.0) g/dl RDW 12.2 (11.0-16.0) % Plt Count 281 (160-400) X10*3/uL MPV 9.3 L (9.4-12.3) fL Immature Gran % (Auto) 0.2 (0.0-0.4) % Neut % (Auto) 55.6 (45-73) % Lymph % (Auto) 35.2 (20-40) % [place] % (Auto) 5.9 (2-11) % Eos % (Auto) 2.8 (0-4) % Baso % (Auto) 0.3 (0-2) % Lymph # (Auto) 2.0 (1.2-4.9) X10*3/uL [place] # (Auto) 0.3 (0.1-1.2) X10*3/uL Eos # (Auto) 0.2 (0.0-0.4) X10*3/uL Baso # (Auto) 0.0 (0.0-0.2) X10*3/uL Abs Immat Gran (auto) 0.01 (0.00-0.03) X10*3/uL Absolute Neuts (auto) 3.2 (2.0-8.3) x10*3/uL Absolute Nucleated RBC 0.000 (0.0-0.012) X10*3/uL Nucleated RBC % (auto) 0.0 (0.0-0.2) /100WBC Sodium 139 (135-145) mmol/L Potassium 4.2 (3.3-5.1) mmol/L Chloride 107 (96-108) mmol/L Carbon Dioxide 28 (22-29) mmol/L Anion Gap 8 L (12-20) BUN 13 (9-16) mg/dL Creatinine 0.67 (0.5-1.4) mg/dL Estim Creat Clear Calc 117.6 Estimated GFR > 60 Random Glucose 83 (60-115) mg/dL Calcium 9.4 (8.4-10.2) mg/dL Total Bilirubin 0.3 (0.0-1.0) mg/dL AST 39 H (5-31) U/L ALT 58 H (0-31) U/L Alkaline Phosphatase 73 (39-117) U/L Troponin I High Sens < 2.7 (<3.5-17.0) ng/L Total Protein 7.7 (6.5-8.0) g/dL Albumin 4.5 (3.5-5.0) g/dL Beta HCG, Quant < 2 mIU/mL Independent Interpretation I performed an independent interpretation of an: EKG Interpretation: Rate: 76 Rhythm: NSR Talmage: 48/33/45 Normal P waves. Normal CLEMENTE. Normal QRS complex. ST T wave : no dep, elev qTC: 414 prior studies: Similar The study has been interpreted contemporaneously by me. Independent Historian Clinical information obtained from an independent historian. History obtained from or confirmed by: Parent External Record Review External record reviewed: Outpatient record Chronic Conditions Patient?s care impacted by: Other (s/p breast implantation) Social Determinants Patient?s care significantly limited by Social Determinants of Health including: Problems related to primary support group Discharge Plan Discharge Clinical Impression: Pain in breast Patient Disposition: Home, Self-Care Instructions: Breast Implant Removal (DC) Additional Instructions: As we discussed, your lab work today was overall very reassuring. However, upon examination of your breasts, it does appear that your breast implants are bottoming out, meaning they are sitting at the underside of your breast causing discomfort. I have prescribed you a short course of Oxycodone tablets to help with the discomfort. Please use this in conjunction with Tylenol. Please follow up tomorrow with your primary care provider, and ask them to schedule you for an outpatient breast MRI. Please also follow up with the [facility] breast surgeons as soon as possible. With any worsening complaints, return back to the ED for reassessment. Prescriptions: New oxycodone 5 mg tablet 5 mg PO Q8H PRN (Reason: pain) 5 Days Qty: 10 0RF Rx Instructions: Partial Fill upon patient request. Referrals: [facility]ast [facility] [Provider Group] Emilia Bee DO [Primary Care Provider, Internal Medicine] Interventions: ED Discharge Assessment Last Done: 10/23/25 17:40 Discharge Date/Time: 10/23/25 17:42 Print Language: Polish
--- NOTE | 2025-10-23 12:20 | ECG_ITS ---
Test Reason : CP Blood Pressure : */* mmHG Vent. Rate : 76 BPM Atrial Rate : 76 BPM P-R Int : 130 ms QRS Dur : 84 ms QT Int : 368 ms P-R-T Axes : 48 33 45 degrees QTcB Int : 414 ms Normal sinus rhythm Nonspecific ST and T wave abnormality Abnormal ECG When compared with ECG of 19-Feb-2022 15:24, Nonspecific T wave abnormality now evident in Lateral leads Referred By: Oumar Rashid Electronically Signed By: MAGALY VARELA MD
[2025-10-23 12:50] LABS: MANUAL DIFF FLAG NO
[2025-10-23 12:52] LABS: Hematocrit 40.7 % (37.0-47.0); Hemoglobin 13.7 g/dl (12.0-16.0); Imm Gran Abs Auto 0.01 X10*3/uL (0.00-0.03); Imm Gran Pct Auto 0.2 % (0.0-0.4); Lymphocytes Absolute Auto 2.0 X10*3/uL (1.2-4.9); Mean Corpuscular HGB Conc 33.7 g/dl (31.0-35.0); Mean Corpuscular Hemoglobin 31.2 pg (27.0-33.0); Mean Corpuscular Volume 92.7 fL (80.0-98.0); NRBC Abs Auto 0.000 X10*3/uL (0.0-0.012); NRBC Pct Auto 0.0 /100WBC (0.0-0.2); Platelet Count 281 X10*3/uL (160-400); Red Blood Count 4.39 X10*6/uL (4.20-5.50); White Blood Count 5.8 X10*3/uL (4.8-10.8)
[2025-10-23 13:11] LABS: Alanine Aminotransferase 58 U/L (0-31); Albumin Level 4.5 g/dL (3.5-5.0); Alkaline Phosphatase 73 U/L (39-117); Anion Gap 8 (12-20); Aspartate Amino Transferase 39 U/L (5-31); Blood Urea Nitrogen 13 mg/dL (9-16); Calcium 9.4 mg/dL (8.4-10.2); Carbon Dioxide 28 mmol/L (22-29); Chloride 107 mmol/L (96-108); Creatinine Clr Calc Pharmacy 117.6; Estimated Glomerular Filt Rate > 60; Potassium 4.2 mmol/L (3.3-5.1); Sodium 139 mmol/L (135-145); Total Protein 7.7 g/dL (6.5-8.0)
[2025-10-23 13:13] LABS: Troponin-I High Sensitivity < 2.7 ng/L (<3.5-17.0)
[2025-10-23] MEDS: oxyCODONE HCl Immed Release 5 MG TABLET PO (17:34)
[2025-10-23 17:40] VITALS: BP 153/73; PULSE 88; RESP 16; TEMP 36.3; O2SAT 98
--- OUTSIDE RECORDS SUMMARY | 2025-10-24 02:23 | XMS_ITS | Encounter Summary ---
Author Organization [employer] Address [address] 7 [place] [address] Care Team Providers Care Rubber Gasket Inspector Trimmer Name Role Phone Cristal Emilia Primary Care Provider [phone] Encounter Details Date Type Department Care Team ([facility] st Contact Info) Description 10/23/2025 Orders Only GENERIC EXTERNAL DATA DEPARTMENT Provider, Generic External Data Social History Tobacco Use Types Packs/Day Years Used Date Smoking Tobacco: Never Passive Smoke Exposure: Never Smokeless Tobacco: Never Alcohol Use Standard Drinks/Week Comments Never 0 (1 standard drink = 0.6 oz pur e alcohol) Depression Answer Date Recorded Patient Health Questionnaire-9 Score 0 09/29/2025 Patient Health Questionnaire-9 Score 0 09/29/2025 Last PHQ-9: Questionnaire Data Not on file 1 11/29/2024 Housing Stability Answer Date Recorded What is [...] Date Recorded Patient Health Questionnaire-2 Score 0 09/29/2025 Internet Access Answer Date Recorded Internet Access [...] Care Team (Late st Contact Info) Description 10/24/2025 8:40 AM EST Office Visit [facility] [address], [place] [phone] documented as of this encounter Procedures Procedure Name Priority Date/Time Associated Diagnosis Comments CBC WITH AUTO DIFFERENTIAL Routine 10/23/2025 12:43 PM EST HIGH SENSITIVITY TROPONIN I Routine 10/23/2025 12:42 PM EST HCG, TOTAL, QN Routine 10/23/2025 12:42 PM EST COMPREHENSIVE METABOLIC PANEL Routine 10/23/2025 12:42 PM EST documented in this encounter Results * (ABNORMAL) CBC auto differential (10/23/2025 12:43 PM EST) White Blood Count 5.8 4.8 - 10.8 X10*3/uL [facility] Red Blood Count 4.39 4.20 - 5.50 X10*6/uL [facility] Hemoglobin 13.7 12.0 - 16.0 g/dl [facility] Hematocrit 40.7 37.0 - 47.0 % [facility] Mean Corpuscular Volume 92.7 80.0 - 98.0 fL [facility] Mean Corpuscular Hemoglobin 31.2 27.0 - 33.0 pg [facility] Mean Corpuscular HGB Conc 33.7 31.0 - 35.0 g/dl [facility] Red Cell Distribution Width 12.2 11.0 - 16.0 % [facility] Platelet Count 281 160 - 400 X10*3/uL [facility] Mean Platelet Volume 9.3(L) 9.4 - 12.3 fL [facility] Neutrophils Percent Auto 55.6 45 - 73 % [facility] Imm Gran Pct Auto 0.2 0.0 - 0.4 % [facility] Lymphocytes Percent Auto 35.2 20 - 40 % [facility] Monocytes Percent Auto 5.9 2 - 11 % [facility] Eosinophils Percent Auto 2.8 0 - 4 % [facility] Basophils Percent Auto 0.3 0 - 2 % [facility] NRBC Pct Auto 0.0 0.0 - 0.2 /100WBC [facility] Neutrophils Absolute Auto 3.2 2.0 - 8.3 x10*3/uL [facility] Imm Gran Abs Auto 0.01 0.00 - 0.03 X10*3/uL [facility] Lymphocytes Absolute Auto 2.0 1.2 - 4.9 X10*3/uL [facility] Monocytes Absolute Auto 0.3 0.1 - 1.2 X10*3/uL [facility] Eosinophils Absolute Auto 0.2 0.0 - 0.4 X10*3/uL [facility] Basophils Absolute Auto 0.0 0.0 - 0.2 X10*3/uL [facility] NRBC Abs Auto 0.000 0.0 - 0.012 X10*3/uL [facility] 10/23/2025 12:4 3 PM EST 10/23/2025 12:48 PM EST us Generic External Data Provider LAB BLOOD ORDERAB LES Final Result [facility] [address] [place] [phone] * hCG, Total, Quantitative (10/23/2025 12:42 PM EST) Pathologist [facility] HCG Quantitative <2 mIU/mL [facility] Comment:Weeks post LMP Appro ximate hCG(Last Menstrual Period) Range (mIU/ml)3 - 4 weeks 9 - 1304 - 5 weeks 75 - 2,6005 - 6 weeks 850 - 20,8006 - 7 weeks 4000 - 100,2007 - 12 weeks 11,500 - 289,32841 - 16 weeks 18,300 - 137,14186 - 29 weeks (2nd trimester) 1,400 - 53,33366 - 41 weeks (3rd trimester) 940 - 60,000The Hull B- hCG assay is used for the early detection ofpregnancy; it cannot be used to diagnose any conditionunrelated to . If a B-hCG level is not supportedby the clinical evidence, results should be confirmed by analternative method (qualitative urine hCG, for example). 10/23/2025 12:4 2 PM EST 10/23/2025 12:48 PM EST us Generic External Data Provider LAB BLOOD ORDERAB LES Final Result Performing Organization Address City/[facility]/ZIP Co de Phone Number [facility] [address] [place] [phone] * High Sensitivity Troponin I (10/23/2025 12:42 PM EST) [facility] TROPONIN I HIGH SENSITIVITY <2.7 <3.5 - 17.0 ng/L [facility] Comment:The Hull high sens itivity Troponin-I results should beused in conjunction with other diagnostic information suchas ECG, clinical observations and information, and patientsymptoms to aid in the diagnosis of ND. 10/23/2025 12:4 2 PM EST 10/23/2025 12:48 PM EST us Generic External Data Provider LAB BLOOD ORDERAB LES Final Result Performing Organization Address City/[facility]/ZIP Co de Phone Number [facility] [address] [place] [phone] * (ABNORMAL) Comprehensive Metabolic Panel (10/23/2025 12:42 PM EST) Sodium 139 135 - 145 mmol/L [facility] Potassium 4.2 3.3 - 5.1 mmol/L [facility] Chloride 107 96 - 108 mmol/L [facility] Carbon Dioxide 28 22 - 29 mmol/L [facility] Anion Gap 8(L) 12 - 20 [facility] Urea Nitrogen (BUN) 13 9 - 16 mg/dL [facility] Creatinine, Serum 0.67 0.5 - 1.4 mg/dL [facility] Creatinine Clr Calc Pharmacy 117.6 [facility] Comment:Provided height and weight: 162.56 cm,75.4 kg.eGFR (calculated from the MDRD study equation) and eCrCl(calculated from the Cockcroft-Gault equation) are based ondifferent parameters and may not yield comparable results.If eCrCl result is absurd, please check patient'sheight/weight. Estimated Glomerular Filt Rate >60 [facility] Comment:Chronic Kidney Disea se: Estimated GFR < 60 mL/min/1.65k8Zpakec Kidney Disease: Estimated GFR < 15 mL/min/1.73m2 Glucose 83 60 - 115 mg/dL [facility] Calcium 9.4 8.4 - 10.2 mg/dL [facility] Bilirubin, Total 0.3 0.0 - 1.0 mg/dL [facility] Aspartate Amino Transferase 39(H) 5 - 31 U/L [facility] Alanine Aminotransferase 58(H) 0 - 31 U/L [facility] Total Protein 7.7 6.5 - 8.0 g/dL [facility] Albumin Level 4.5 3.5 - 5.0 g/dL [facility] Alkaline Phosphatase 73 39 - 117 U/L [facility] 10/23/2025 12:4 2 PM EST 10/23/2025 12:48 PM EST us Generic External Data Provider LAB BLOOD ORDERAB LES Final Result [facility] [address] [place] [phone] documented in this encounter Visit Diagnoses Not on filedocumented in this encounter Additional Health Concerns Assessment Noted Time PHQ-9 Depression Total Score: 0 09/29/20 25 9:58 AM EST documented as of this encounter Care Teams Rubber Gasket Inspector Trimmer Relationship Specialty Start Date End Date Emilia Bee DO [address] [place] [address] PCP - General Family Medicine 10/10/20 documented as of this encounter
--- OUTSIDE RECORDS SUMMARY | 2025-10-24 02:23 | XMS_ITS | Encounter Summary ---
Author Organization [employer] Address [address] [place] [address] Care Team Providers Care Car Coupler Name Role Phone Cristal Emilia Primary Care Provider + [phone] Reason for Visit * Reason Comments Med Refill Encounter Details Date Type Department Care Team ([facility] st Contact Info) Description 01/16/2025 Refill [facility] [address], [place] [phone] Denny Connors MD [address] [place] [address] Folliculitis Social History Tobacco Use Types Packs/Day Years [...] Description 10/24/2025 8:40 AM EST Office Visit [facility] [address] [place] [phone] documented as of this encounter Visit Diagnoses Diagnosis Folliculitis Other specified disease of hair and hair follicles documented in this encounter Additional Health Concerns Assessment Noted Time PHQ-9 Depression Total Score: 0 12/21/19 25 9:06 AM EST documented as of this encounter Care Teams Car Coupler Relationship Specialty Start Date End Date Emilia Bee DO [address] [place] [phone] PCP - General Family Medicine 10/10/20 documented as of this encounter
--- OUTSIDE RECORDS SUMMARY | 2025-10-24 02:23 | XMS_ITS | Clinical Summary ---
Author Organization [facility] Address [address] [place] [address] Care Team Providers Care Garden Labourer Name Role Phone DmitriyEmilia brown Taiwo SHERMAN Primary Care Provider [phone] Medical History Medical History Date Comments Obesity DX:Obesity History of gestational diabetes DX:History of gestational diabetes PCOS (polycystic ovarian syndrome) DX:PCOS (polycystic ovarian syndrome) Chronic bilateral low back pain DX:Chronic bilateral low back pain Social History Tobacco Use Types Packs/Day Years Used Date Smoking Tobacco: Never Smokeless Tobacco: Never Comments Unknown Sex and Gender Information Value Date Recorded Sex Assigned at Not on file Legal Sex Female 11:38 PM EST Gender Identity Not on file Sexual Orientation Not on file Last Filed Vital Signs Vital Sign Reading [...] Cervical Cancer Screening: P ap Smear 02/06/2012 HPV Vaccines (1 - 3-dose SCD M series) 2018 Cholesterol Screening (Lipid Panel) 10/19/2022 HIV Screening 10/19/2022 Hepatitis C Screening 10/19/2022 Social Influencers of Health Screening 10/19/2022 Hepatitis B Vaccines (2 of 3 - 19+ 3-dose series) 05/04/2023 04/06/2023 DTaP,Tdap,and Td Vaccines (2 - Td or Tdap) 12/06/2023 12/06/2013 Depression Screening 11/16/2024 COVID-19 Vaccine (3 - 2024-2 6 season) 2025 01/14/2022, 12/24/2021 Influenza Vaccine (#1) 2025 9, 08/11/2013 RSV Immunization Adult Patients (1 - 1-dose 75+ series) 2066 Varicella Vaccines Aged Out 03/23/2019 No longer [...] patient's age to complete this topic Meningococcal B Vaccine Aged Out No l onger eligible based on patient's age to complete this topic Pneumococcal Vaccine: Pediatrics (0 to 5 Years) and At-Risk Patients (6 to 49 Years) Aged Out No longer eligible b ased on patient's age to complete this topic RSV Immunization Patients Under 20 months Aged Out No longer eligible b ased on patient's age to complete this topic Care Teams Garden Labourer Relationship Specialty Start Date End Date Emilia Bee DO [address] [place] [address] PCP - General 04/16/23
--- OUTSIDE RECORDS SUMMARY | 2025-10-24 02:23 | XMS_ITS | Clinical Summary ---
Author Organization [employer] Address [address] [place] [address] 7t [place] [address] Care Team Providers Care Mobile Designer Name Role Phone Cristal Emilia Primary Care Provider Allergies No known active allergies Medications Vit-Fe Fumarate-FA ( Vitamins) 28-0.8 MG tablet Take 1 tablet by mouth in the morning. 11/24/19 23 Active SEMAGLUTIDE, 1 MG/DOSE, SC Inject 1 mg under the skin 1 (one) time per week. Active cetirizine (ZyrTEC) 10 MG tablet Take 1 tablet (10 mg) by mouth Once per day. 90 tablet 3 07/14/20 24 Active amitriptyline (Elavil) 10 MG tablet Take 1 tablet (10 mg) by mouth at bedtime. 30 tablet 3 09/20/20 24 Active butalbital-joycelyn taminophen-caf feine 50-325-40 MG tabletIndicati ons:Acute intractable headache, unspecified headache type Take 1 tablet by mouth every 4 (four) hours if needed for headaches or migraine. 30 tablet 09/20/20 24 Active SUMAtriptan (Imitrex) 50 MG tabletIndicati ons:Acute intractable headache, unspecified headache type TAKE 1 TABLET AT ONSET OF MIGRAINE, MAY REPEAT AFTER 2 HOURS IF NEEDED. MAX 2 TABS/24 HOURS 5 tablet 10/06/20 24 Active Fluocinolone Acetonide Scalp ([place] /FS Scalp) 0.01 % oilIndications :Folliculitis Apply 3 time weekly with head cover at night 118.28 mL 1 10/28/20 24 Active Ketotifen Fumarate 0.035 % solution ADMINISTER 1 DROP INTO AFFECTED EYE(S) IF NEEDED IN THE MORNING AND AT BEDTIME (EYE ALLERGIES/ITC EDIN). 10 mL 1 01/18/20 25 Active traMADol (Ultram) 50 MG tabletIndicati ons:Chronic bilateral low back pain without sciatica Take 1 tablet (50 mg) by mouth if needed in the morning and at bedtime for severe pain for up to 28 days. 56 tablet 09/29/20 25 025 Active fluticasone (Flonase) 50 MCG/ACT nasal spray Administer 2 sprays into each nostril Once per day. Shake gently. Before first use, prime pump. After use, clean tip and replace cap. 16 g 11 10/18/20 25 026 Active omeprazole (PriLOSEC) [address] capsule Take 1 capsule (20 mg) by mouth before breakfast. Do not crush or chew. 90 capsule 3 10/18/20 25 Active tiZANidine (Zanaflex) 2 MG tablet Take 1 tablet (2 mg) by mouth if needed in the morning, at noon, and at bedtime for muscle spasms. 60 tablet 3 10/18/20 25 026 Active naproxen (Naprosyn) 500 MG tablet Take 1 tablet (500 mg) by mouth if needed in the morning and at bedtime for mild pain. 40 tablet 1 10/18/20 25 026 Active acetaminophen (Tylenol 8 Hour) 650 MG ER tablet Take 1 tablet (650 mg) by mouth every 8 (eight) hours if needed for mild pain. Do not crush, chew, or split. 40 tablet 1 10/18/20 25 026 Active Diclofenac Sodium 1 % gel Apply 2 g topically if needed in the morning, at noon, in the evening, and at bedtime (pain). 150 g 3 10/18/20 25 Active Diclofenac Sodium 1 % gel APPLY 2 GRAMS TO AFFECTED AREA EVERY MORNING AND BEDTIME NEEDED FOR PAIN 150 g 3 03/21/20 24 025 Discontinued fluticasone (Flonase) 50 MCG/ACT nasal spray Administer 2 sprays into each nostril Once per day. Shake gently. Before first use, prime pump. After use, clean tip and replace cap. 16 g 11 07/14/20 24 025 Discontinued(Re order (will not trigger notification to Pharmacy)) tiZANidine (Zanaflex) 2 MG tablet Take 1 tablet (2 mg) by mouth if needed in the morning, at noon, and at bedtime for muscle spasms. 60 tablet 3 12/21/19 25 025 Discontinued(Re order (will not trigger notification to Pharmacy)) omeprazole (PriLOSEC) [address] capsule TAKE 1 CAPSULE (20 MG) BY MOUTH BEFORE BREAKFAST DO NOT CRUSH OR CHEW 90 capsule 3 04/25/20 25 025 Discontinued(Re order (will not trigger notification to Pharmacy)) Hospital, Clinic, or Other Facility Administered Medication [...] CT of brain STAT given her c/o 10/10 headache that feels different than previous headaches. [...] PM vs surgery pending MRI -advised contact [facility] if sx change or worsen, she agrees with plans Assessment & Plan (02/27/2023 11:21 AM EDT): -encouraged standing doses of tylenol -trial naprosyn BID -retrial baclofen to help with mm spasm -trial diclofenac gel prn -referred to PT for eval -advised contact HH if no improvement BMI 27.0-27.9,adult 11/04/2022 Assessment [...] Encounters Date Type Department Care Team Description 10/23/2025 Travel 10/23/2025 Orders Only GENERIC EXTERNAL DATA DEPARTMENT Provider, Generic External Data 10/18/2025 11:30 AM EST Office Visit [address] [address] Emilia Bee DO Breast pain (Primary Dx) 10/18/2025 Travel 10/16/2025 Travel 10/16/[address] [address] Emilia Bee DO Nurse Triage 09/29/2025 10:00 AM EST Telemedicine [address] [address] Emilia Bee DO Chronic migraine (Primary Dx); Chronic gastroesophageal reflux disease; Chronic bilateral low back pain without sciatica 09/29/2025 Travel 09/27/[address] [facility] MEDICINE [address] [place] [phone] Emilia Bee DO Chart Prep 09/22/2025 Patient Outreach [facility] [address] [place] [address] Emilia Bee DO Pre-visit Planning (SDOH was already completed) 09/15/[address] [address] Emilia Bee DO June08/16/[address] [facility] MEDICINE [address] [place] [address] Emilia Bee DO Nurse Triage from Last 3 Months Immunizations Immunization Administration Dates Next Due Hep B, adult [...] Sign Reading Time Taken Comments Blood Pressure 113/73 10/23/2025 6:03 PM EST Pulse 85 10/23/2025 6:03 PM EST Temperature 36.4 C (97.5 F) 10/23/2025 6:03 PM EST Respiratory Rate 18 10/23/2025 6:03 PM EST Oxygen Saturation 100% 10/23/2025 6:03 PM EST Inhaled Oxygen Concentration - - Weight 74.8 kg (165 lb) 10/23/2025 6:03 PM EST Height 162.6 cm (5' 4 ) 10/18/2025 11:46 AM EST Body Mass Index 28.32 10/18/2025 11:46 AM EST Plan of Treatment Upcoming Encounters Date Type Department Care Team (Late st Contact Info) Description 10/24/2025 8:40 AM EST Office Visit [facility] [address] [place] [phone] Health Maintenance Due Date Last Done Comments Family Planning (PISQ) 2006 HPV Vaccines (1 - 3-dose series) 2006 Hepatitis A Vaccines (1 of 2 - Risk 2-dose series) 2010 DTaP/Tdap/Td Vaccines (2 - T d or Tdap) 12/06/2023 12/06/2013 COVID-19 Vaccine (2024-2 6 season) 2025 07/23/2022, 01/14/2022, 12/24/2021 Influenza Vaccine (#1) 2025 9, 10/25/2018, 08/11/2013 Alcohol/Substance Use Screening 12/21/2025 12/21/2024 SDOH Screening 12/21/2025 12/21/2024 Cervical Cancer Screening 07/25/2026 HPV/Cotest 07/25/2026 07/25/2021 Pap Smear 07/25/2026 07/25/2021, 07/25/2021 Depression Screening 09/29/2026 09/29/2025, 09/29/2025 Disability Screening 09/29/2026 09/29/2025 Tobacco Screening 10/18/2026 10/18/2025 Lipid Panel 03/21/2029 03/21/2024, 11/05/2022 Zoster Vaccines [...] Years) and At-Risk Patients (6 to 49) Years Aged Out No longer eligible b ased [...] AUTO DIFFERENTIAL Routine 10/23/2025 12:43 PM EST HCG, TOTAL, QN Routine 10/23/2025 12:42 PM EST HIGH SENSITIVITY TROPONIN I Routine 10/23/2025 12:42 PM EST COMPREHENSIVE METABOLIC PANEL Routine 10/23/2025 12:42 PM EST LIPID PANEL, STANDARD Routine 03/21/2024 11:53 AM [...] Relevant to Health Maintenance Results * (ABNORMAL) CBC auto differential (10/23/2025 12:43 PM EST) White Blood Count 5.8 4.8 - 10.8 X10*3/uL [facility] Red Blood Count 4.39 4.20 - 5.50 X10*6/uL [facility] Hemoglobin 13.7 12.0 - 16.0 g/dl [facility] Hematocrit 40.7 37.0 - 47.0 % [facility] Mean Corpuscular Volume 92.7 80.0 - 98.0 fL [facility] Mean Corpuscular Hemoglobin 31.2 27.0 - 33.0 pg [facility] Mean Corpuscular HGB Conc 33.7 31.0 - 35.0 g/dl [facility] Red Cell Distribution Width 12.2 11.0 - 16.0 % [facility] Platelet Count 281 160 - 400 X10*3/uL [facility] Mean Platelet Volume 9.3(L) 9.4 - 12.3 fL [facility] Neutrophils Percent Auto 55.6 45 - 73 % [facility] Imm Gran Pct Auto 0.2 0.0 - 0.4 % [facility] Lymphocytes Percent Auto 35.2 20 - 40 % [facility] Monocytes Percent Auto 5.9 2 - 11 % [facility] Eosinophils Percent Auto 2.8 0 - 4 % [facility] Basophils Percent Auto 0.3 0 - 2 % [facility] NRBC Pct Auto 0.0 0.0 - 0.2 /100WBC [facility] Neutrophils Absolute Auto 3.2 2.0 - 8.3 x10*3/uL [facility] Imm Gran Abs Auto 0.01 0.00 - 0.03 X10*3/uL [facility] Lymphocytes Absolute Auto 2.0 1.2 - 4.9 X10*3/uL [facility] Monocytes Absolute Auto 0.3 0.1 - 1.2 X10*3/uL [facility] Eosinophils Absolute Auto 0.2 0.0 - 0.4 X10*3/uL [facility] Basophils Absolute Auto 0.0 0.0 - 0.2 X10*3/uL [facility] NRBC Abs Auto 0.000 0.0 - 0.012 X10*3/uL [facility] 10/23/2025 12:4 3 PM EST 10/23/2025 12:48 PM EST us Generic External Data Provider LAB BLOOD ORDERAB LES Final Result [facility] [address] [place] [phone] * High Sensitivity Troponin I (10/23/2025 12:42 PM EST) TROPONIN I HIGH SENSITIVITY <2.7 <3.5 - 17.0 ng/L [facility] Comment:The [place] high sens itivity Troponin-I results should beused in conjunction with other diagnostic information suchas ECG, clinical observations and information, and patientsymptoms to aid in the diagnosis of NE. 10/23/2025 12:4 2 PM EST 10/23/2025 12:48 PM EST Generic External Data Provider LAB BLOOD ORDERAB LES Final Result Performing Organization Address [facility] de Phone Number [facility] [address] [place] [phone] * hCG, Total, Quantitative (10/23/2025 12:42 PM EST) HCG Quantitative <2 mIU/mL [facility] Comment:Weeks post LMP Appro ximate hCG(Last Menstrual Period) Range (mIU/ml)3 - 4 weeks 9 - 1304 - 5 weeks 75 - 2,6005 - 6 weeks 850 - 20,8006 - 7 weeks 4000 - 100,2007 - 12 weeks 11,500 - 289,74368 - 16 weeks 18,300 - 137,40130 - 29 weeks (2nd trimester) 1,400 - 53,81460 - 41 weeks (3rd trimester) 940 - 60,000The [place] B- hCG assay is used for the early detection ofpregnancy; it cannot be used to diagnose any conditionunrelated to . If a B-hCG level is not supportedby the clinical evidence, results should be confirmed by analternative method (qualitative urine hCG, for example). 10/23/2025 12:4 2 PM EST 10/23/2025 12:48 PM EST Generic External Data Provider LAB BLOOD ORDERAB LES Final Result Performing Organization Address [facility] Co de Phone Number [facility] [address] [place] [phone] * (ABNORMAL) Comprehensive Metabolic Panel (10/23/2025 12:42 PM EST) Pathologist [facility] Sodium 139 135 - 145 mmol/L [facility] Potassium 4.2 3.3 - 5.1 mmol/L [facility] Chloride 107 96 - 108 mmol/L [facility] Carbon Dioxide 28 22 - 29 mmol/L [facility] Anion Gap 8(L) 12 - 20 [facility] Urea Nitrogen (BUN) 13 9 - 16 mg/dL [facility] Creatinine, Serum 0.67 0.5 - 1.4 mg/dL [facility] Creatinine Clr Calc Pharmacy 117.6 [facility] Comment:Provided height and weight: 162.56 cm,75.4 kg.eGFR (calculated from the MDRD study equation) and eCrCl(calculated from the Cockcroft-Gault equation) are based ondifferent parameters and may not yield comparable results.If eCrCl result is absurd, please check patient'sheight/weight. Estimated Glomerular Filt Rate >60 [facility] Comment:Chronic Kidney Disea se: Estimated GFR < 60 mL/min/1.36w1Tthcmb Kidney Disease: Estimated GFR < 15 mL/min/1.73m2 Glucose 83 60 - 115 mg/dL [facility] Calcium 9.4 8.4 - 10.2 mg/dL [facility] Bilirubin, Total 0.3 0.0 - 1.0 mg/dL [facility] Aspartate Amino Transferase 39(H) 5 - 31 U/L [facility] Alanine Aminotransferase 58(H) 0 - 31 U/L [facility] Total Protein 7.7 6.5 - 8.0 g/dL [facility] Albumin Level 4.5 3.5 - 5.0 g/dL [facility] Alkaline Phosphatase 73 39 - 117 U/L [facility] 10/23/2025 12:4 2 PM EST 10/23/2025 12:48 PM EST us Generic External Data Provider LAB BLOOD ORDERAB LES Final Result [facility] [address] [place] [phone] * (ABNORMAL) Lipid Panel, Standard (03/21/2024 11:53 AM EDT) Triglycerides 66 <150 mg/dL [facility] Comment:Desirable Triglyceri de: less than 150 mg/dLBorderline High Triglyceride 150-199 mg/dLHigh Triglyceride: 200-499 mg/dLVery High Triglyceride: greater than or equal to 5OO mg/dL Cholesterol 140 <200 mg/dL [facility] Comment:Desirable Cholestero l: less than 200 mg/dLBorderline High Cholesterol: 200-239 mg/dLHigh Cholesterol: greater than 239 mg/dL LDL Cholesterol Calculated 88 <100 mg/dL [facility] Comment:Desirable LDL: less than 100 mg/dLNear Optimal/Above Optimal LDL: 110- 129 mg/dLBorderline High LDL: 130-159 mg/dLHigh LDL: 160-189 mg/dLVery High LDL: greater than or equal to 190 mg/dL HDL Cholesterol 39(L) >40 mg/dL [facility] Comment:Desirable HDL: great er than 40 mg/dL Note: This HDL assay may give artificially low results in patients with liver disease. Blood Venous blood specimen / Unknown 03/21/2024 11:53 AM EDT 03/21/2024 1:02 PM EDT Emilia Bee DO LAB BLOOD ORDERABLES Final R esult Performing Organization Address [facility] Co de Phone Number [facility] [address] [place] [phone] * Hepatitis C Antibody with Reflex to HCV, RNA, Quantitative, Real-Time PCR (03/21/2024 11:14 AM EDT) Hepatitis C Antibody Nonreactive Nonreactive [facility] Comment:Antibodies to HCV no t detected; does not exclude early acuteHCV infection. Blood Venous blood specimen / Unknown 03/21/2024 11:14 AM EDT 03/21/2024 1:02 PM EDT Emilia Bee LAB BLOOD ORDERABLES Final R esult Performing Organization Address City/[facility] Co de Phone Number [facility] [address] [place] [phone] * HIV-1/2 Antigen and Antibodies, Fourth Generation, with Reflexes (03/21/2024 11:14 AM EDT) HIV AB/AG Nonreactive Nonreactive [facility] Comment:HIV-1 p24 Ag and/or HIV-1/HIV-2 Ab not detected.A test result that is nonreactive does not exclude thepossibility of exposure to or infection with HIV-1 and/orHIV-2. Nonreactive results in this assay for individualswith prior exposure to HIV-1 and/or HIV-2 may be due toantigen and antibody levels that are below the limit ofdetection of this assay.The [employer] HIV Ag/Ab Combo assay result andsupplemental assay results should be interpreted inconjunction with the patient's clinical presentation,history and other laboratory results. If the results areinconsistent with clinical evidence, additional testing issuggested to confirm the result. Blood Venous blood specimen / Unknown 03/21/2024 11:14 AM EDT 03/21/2024 1:02 PM EDT us Emilia Bee DO LAB BLOOD ORDERABLES Final R esult [facility] [address] [place] [phone] * HPV mRNA E6/E7 (07/25/2021 9:14 AM EDT) HPV nRNA E6/E7 Not Detected Not Detected [facility] Comment: Methodology: Solar Lab Technician-Mediated Amplification This assay detects E6/E7 viral messenger RNA (mRNA) from 14 high-risk HPV types (16,18,31,33,35,39,45,51,52,56,58,59,66,68). The analytical performance characteristics of this assay have been determined by [employer]. The modifications have not been cleared or approved by the FDA. This assay has been validated pursuant to the CLIA regulations and is used for clinical purposes. For additional information, please refer to http://education.[employer]/faq/RYS767l8 (This link if provided for information/ educational purposes only.) 07/25/2021 9:14 AM EDT Dixie JALLOH LAB BLOOD ORDERABLES Jana l Result [facility] [address] [place] [phone] * Pap Smear (07/25/2021 12:00 AM EDT) Swab Dixie JALLOH LAB CYTOLOGY ORDERABLES F inal Result [facility] [address] [facility], [place] [phone] from Last 3 Months or Most Recently Relevant to Health Maintenance Insurance C3 Care Teams Mobile Designer Relationship Specialty Start Date End Date Emilia Bee DO [address] [place] [phone] PCP - General Family Medicine 10/10/20
--- OUTSIDE RECORDS SUMMARY | 2025-10-24 02:23 | XMS_ITS | Encounter Summary ---
Author Organization [employer] Address [address] [facility] 7 [place] [address] Care Team Providers Care Educational Technologist Name Role Phone Emilia Bee DO Primary Care Provider + [phone] Encounter Details Date Type Department Care Team ([facility] Contact Info) Description 11/11/2022 Telephone [facility] MEDICINE [address] [place] [phone] Emilia Bee DO [address] [place] [phone] Social History Tobacco Use Types Packs/Day Years [...] Upcoming Encounters Date Type Department Care Team ([facility] Contact Info) Description 10/24/2025 8:40 AM EST Office Visit [facility] [address] [place] [address] documented as of this encounter Visit Diagnoses Not on filedocumented in this encounter Additional Health Concerns Assessment Noted Time PHQ-9 Depression Total Score: 0 11/04/20 22 9:56 AM EST documented as of this encounter Care Teams Educational Technologist Relationship Specialty Start Date End Date Emilia Bee DO [address] [place] [address] PCP - General Family Medicine 10/10/20 documented as of this encounter
--- OUTSIDE RECORDS SUMMARY | 2025-10-24 02:23 | XMS_ITS | Encounter Summary ---
Author Organization [employer] Address [address] [facility] 7 [place] [address] Care Team Providers Care Completions Manager Name Role Phone Emilia Bee DO Primary Care Provider + [phone] Encounter Details Date Type Department Care Team ([facility] st Contact Info) Description 09/14/2023 Abstract [facility] MEDICINE [address] [place], [place] [phone] Emilia Bee DO [address] [place], [place] [phone] Social History Tobacco Use Types Packs/Day Years [...] t he electric, gas, oil or water [employer] threatened to shut off services in your [...] Description 10/24/2025 8:40 AM EST Office Visit [facility] WALK-IN CENTER [address] [place] [phone] documented as of this encounter Visit Diagnoses Not on filedocumented in this encounter Additional Health Concerns Assessment Noted Time PHQ-9 Depression Total Score: 0 11/04/20 22 9:56 AM EST documented as of this encounter Care Teams Completions Manager Relationship Specialty Start Date End Date Emilia Bee DO [address] [place] [phone] PCP - General Family Medicine 10/10/20 documented as of this encounter
--- OUTSIDE RECORDS SUMMARY | 2025-10-24 02:23 | XMS_ITS | Encounter Summary ---
Author Organization [employer] Address [address] [place] [address] 7 [place] [address] Care Team Providers Care Cad Drafter Name Role Phone Emilia Bee DO Primary Care Provider + [phone] Encounter Details Date Type Department Care Team ([facility] Contact Info) Description 04/08/2023 [facility] Information Management [address] [place] [address] Emilia Bee DO [address] [place] [address] Social History Tobacco Use Types Packs/Day Years [...] Upcoming Encounters Date Type Department Care Team ([facility] Contact Info) Description 10/24/2025 8:40 AM EST Office Visit [facility] [place] [address] [place] [address] documented as of this encounter Visit Diagnoses Not on filedocumented in this encounter Additional Health Concerns Assessment Noted Time PHQ-9 Depression Total Score: 0 11/04/20 22 9:56 AM EST documented as of this encounter Care Teams Cad Drafter Relationship Specialty Start Date End Date Emilia Bee DO [address] [place] [address] PCP - General Family Medicine 10/10/20 documented as of this encounter
--- OUTSIDE RECORDS SUMMARY | 2025-10-24 02:23 | XMS_ITS | Encounter Summary ---
Author Organization [employer] Address [address] [facility] 7t [place] [address] Care Team Providers Care Reproductive Healthcare Assistant Name Role Phone CristalEmilia Primary Care Provider [phone] Encounter Details Date Type Department Care Team (Latest Contact Info) Description 10/23/2025 Travel Social History Tobacco Use Types Packs/Day [...] Description 10/24/2025 8:40 AM EST Office Visit [facility] [address] [place] [address] documented as of this encounter Visit Diagnoses Not on filedocumented in this encounter Additional Health Concerns Assessment Noted Time PHQ-9 Depression Total Score: 0 09/29/20 25 9:58 AM EST documented as of this encounter Care Teams Reproductive Healthcare Assistant Relationship Specialty Start Date End Date Emilia Bee DO [address] [place] [phone] PCP - General Family Medicine 10/10/20 documented as of this encounter
--- OUTSIDE RECORDS SUMMARY | 2025-10-24 02:23 | XMS_ITS | Encounter Summary ---
Author Organization [employer] Address [address] [facility] 7 [place] [address] Care Team Providers Care An/Ssn 2 4 Operator Name Role Phone Emilia Bee DO Primary Care Provider + [phone] Encounter Details Date Type Department Care Team ([facility] Contact Info) Description 12/04/2022 Orders Only [facility] [address] [place] [id number] Emilia Bee DO [address] [place] [address] [phone] Social History Tobacco Use Types Packs/Day Years [...] Upcoming Encounters Date Type Department Care Team ([facility] Contact Info) Description 10/24/2025 8:40 AM EST Office Visit [facility] [address] [place] [address] documented as of this encounter Visit Diagnoses Not on filedocumented in this encounter Additional Health Concerns Assessment Noted Time PHQ-9 Depression Total Score: 0 11/04/20 22 9:56 AM EST documented as of this encounter Care Teams An/Ssn 2 4 Operator Relationship Specialty Start Date End Date Emilia Bee DO [address] [place] [address] PCP - General Family Medicine 10/10/20 documented as of this encounter
== END 2025-10-23 17:42 | disposition home or self-care (01) ==
PROVIDERS: Physician Assistant; Emergency Provider Emergency Medicine; PCP Family Medicine
DX: N64.4 Mastodynia (principal); R07.9 Chest pain, unspecified; R94.31 Abnormal electrocardiogram [ECG] [EKG]
CPT/HCPCS: 36415; 80053; 84484; 84702; 85025; 93005; 99283

== ENCOUNTER → 2025-10-23 12:20 | Outpatient (BNV) | payer MEDICAID, SELFPAY | PROVIDERS: PCP Family Medicine; Visit Provider Internal Medicine Cardiovascular Disease | DX: R94.31 Abnormal electrocardiogram [ECG] [EKG] (principal); R07.9 Chest pain, unspecified | CPT/HCPCS: 93010 ==

== ENCOUNTER 2025-11-01 14:46 | Outpatient (REF) | payer MEDICAID, SELFPAY ==
--- NOTE | ~2025-11-01 | MR_ITS ---
EXAMINATION: MULTIPARAMETRIC 1.5T BILATERAL BREAST MRI WITHOUT IV CONTRAST HISTORY: 35-year-old female presents for implant evaluation. Bilateral breast pain left palpable lump. TECHNIQUE: Multiplanar T1- and T2- weighted images were acquired on a 1.5 Kaylene magnet with a breast coil, Computer generated 3D reconstruction was utilized by the radiologist interpreting the exam. COMPARISON: Comparison is made with relevant prior exams. FINDINGS: Evaluation of the breast parenchyma cannot be performed in this noncontrast study. There are bilateral normal appearing intact silicone implants without evidence of rupture. LEFT BREAST: Evaluation of the breast parenchyma cannot be performed in this noncontrast study. Within the above limitations no suspicious mass, focus or area of architectural distortion is seen within the left breast. There is no skin thickening, nipple retraction, left axillary or internal mammary lymphadenopathy. RIGHT BREAST: Evaluation of the breast parenchyma cannot be performed in this noncontrast study. Within the above limitations no suspicious mass, focus or area of architectural distortion is seen within the right breast. There is no skin thickening, nipple retraction, right axillary or internal mammary lymphadenopathy. OTHER: No suspicious abnormality is present in the visualized chest and abdomen on this noncontrast study. MR/MR breast BI wo con IMPRESSION: Patient has bilateral breast pain and left palpable lump. A diagnostic mammogram and ultrasound of the left breast in the area of focal palpable lump is recommended at this time for further evaluation. If there is bilateral focal pain or diagnostic mammogram and ultrasound is recommended at this time. Left Breast: Limited evaluation on this noncontrast study. Normal-appearing intact implants without evidence of rupture. Right Breast: Limited evaluation on this noncontrast study. Normal appearing intact implants without evidence of rupture. Recommendation: Recommend diagnostic left breast mammogram and ultrasound at this time for evaluation of left breast palpable lump and pain. If there is right breast focal pain recommend right breast diagnostic mammogram and ultrasound. Electronically signed by: Analy Pacheco DO 11/01/2025 06:17 PM EST
--- OUTSIDE RECORDS SUMMARY | 2025-11-01 19:42 | XMS_ITS | Encounter Summary ---
Author Organization [employer] Address [address] [place] [address] 7 [place] [address] Care Team Providers Care Recreation Superintendent Name Role Phone Emilia Bee DO Primary Care Provider [phone] Encounter Details Date Type Department Care Team ([facility] st Contact Info) Description 12/04/2022 Orders Only [facility] [address] [place], [place] [phone] Emiila Bee DO [address] [place], [place] [phone] Social History Tobacco Use Types Packs/Day Years [...] as of this encounter Plan of Treatment Not on file documented as of this encounter Visit Diagnoses Not on filedocumented in this encounter Additional Health Concerns Assessment Noted Time PHQ-9 Depression Total Score: 0 11/04/20 22 9:56 AM EST documented as of this encounter Care Teams Recreation Superintendent Relationship Specialty Start Date End Date Emilia Bee DO [address] [place] [address] PCP - General Family Medicine 10/10/20 documented as of this encounter
--- OUTSIDE RECORDS SUMMARY | 2025-11-01 19:43 | XMS_ITS | Encounter Summary ---
Author Organization [employer] Address [address] [place] [address] 7 [place] [address] Care Team Providers Care Fence Supervisor Name Role Phone Emilia Bee DO Primary Care Provider [phone] Encounter Details Date Type Department Care Team ([facility] st Contact Info) Description 11/11/2022 Telephone [facility] [address] [place], [place] [phone] Emilia Bee DO [address] [place] [address] Social History Tobacco Use Types Packs/Day Years [...] documented as of this encounter Care Teams Fence Supervisor Relationship Specialty Start Date End Date Emilia Bee DO [address] [place] [address] PCP - General Family Medicine 10/10/20 documented as of this encounter
--- OUTSIDE RECORDS SUMMARY | 2025-11-01 19:43 | XMS_ITS | Encounter Summary ---
Author Organization [email or web address] Address [address] [facility] 7 [place] [address] Care Team Providers Care Referral Nurse Name Role Phone Cristal Emilia Primary Care Provider + [phone] Reason for Visit * Reason Comments Med Refill Encounter Details Date Type Department Care Team ([facility] st Contact Info) Description 01/16/2025 Refill [facility] [address] [place], [place] [phone] Denny Connors MD [address] [place] [address] Folliculitis Social History Tobacco Use Types Packs/Day [...] documented as of this encounter Care Teams Referral Nurse Relationship Specialty Start Date End Date Emilia Bee DO [address] [place] [id number] PCP - General Family Medicine 10/10/20 documented as of this encounter
--- OUTSIDE RECORDS SUMMARY | 2025-11-01 19:43 | XMS_ITS | Encounter Summary ---
Author Organization [email or web address] Address [address] [facility] 7 [place] [address] Care Team Providers Care Metallurgical Laboratory Assistant Name Role Phone Emilia Bee DO Primary Care Provider + [phone] Encounter Details Date Type Department Care Team ([facility] st Contact Info) Description 09/14/2023 Abstract [facility] [address] [place], [place] [phone] Emilia Bee DO [address] [place], [place] [phone] Social History Tobacco Use Types Packs/Day Years [...] t he electric, gas, oil or water [employer]3 threatened to shut off services in your [...] documented as of this encounter Care Teams Metallurgical Laboratory Assistant Relationship Specialty Start Date End Date Emilia Bee DO [address] [place] [address] PCP - General Family Medicine 10/10/20 documented as of this encounter
--- OUTSIDE RECORDS SUMMARY | 2025-11-01 19:43 | XMS_ITS | Clinical Summary ---
Author Organization [facility] ity Address [address] [place] [address] Care Team Providers Care Lumber Sorter Name Role Phone DmitriyEmilia brown Taiwo SHERMAN Primary Care Provider [phone] Medical History Medical History Date Comments Obesity [...] age to complete this topic Care Teams Lumber Sorter Relationship Specialty Start Date End Date Emilia Bee DO [address] [place] [address] PCP - General 04/16/23
--- OUTSIDE RECORDS SUMMARY | 2025-11-01 19:43 | XMS_ITS | Encounter Summary ---
Author Organization [employer] Address [address] [facility] 7t [place] [address] Care Team Providers Care Hardening Machine Operator Name Role Phone Emilia Bee DO Primary Care Provider + [phone] Encounter Details Date Type Department Care Team ([facility] st Contact Info) Description 11/01/2025 Results Follow-Up [facility] [address] [place] [address] [phone] Rhett Boss MD [address] [place], [place] [phone] BI MR Breast w/o Contrast Bilateral Social History Tobacco Use Types Packs/Day Years [...] documented as of this encounter Care Teams Hardening Machine Operator Relationship Specialty Start Date End Date Emilia Bee DO [address] [place] [id number] PCP - General Family Medicine 10/10/20 documented as of this encounter
--- OUTSIDE RECORDS SUMMARY | 2025-11-01 19:43 | XMS_ITS | Encounter Summary ---
Author Organization [employer] Address [address] [place] [address] 7 [place] [address] Care Team Providers Care Marketing Strategy Analyst Name Role Phone Emilia Bee DO Primary Care Provider [phone] Encounter Details Date Type Department Care Team ([facility] st Contact Info) Description 04/08/2023 [facility] Information Management [address] [place] [address] Emilia Bee DO [address] [place] [address] Social History Tobacco Use Types Packs/Day Years [...] documented as of this encounter Care Teams Marketing Strategy Analyst Relationship Specialty Start Date End Date Emilia Bee DO [address] [place] [address] PCP - General Family Medicine 10/10/20 documented as of this encounter
--- OUTSIDE RECORDS SUMMARY | 2025-11-01 19:43 | XMS_ITS | Clinical Summary ---
Author Organization [employer] Address [address] [place] [address] [address] [place] [address] Care Team Providers Care Qa Test Analyst Name Role Phone Cristal Emilia Primary Care Provider [phone] Allergies No known active allergies Medications Vit-Fe [...] tablet 10/06/20 24 Active Fluocinolone Acetonide Scalp (Hurlock-Smoothe /FS Scalp) 0.01 % oilIndications :Folliculitis Apply 3 time weekly with head cover at night 118.28 mL 1 10/28/20 24 Active Ketotifen Fumarate 0.035 % solution ADMINISTER 1 DROP INTO AFFECTED EYE(S) IF NEEDED IN THE MORNING AND AT BEDTIME (EYE ALLERGIES/ITC EDIN). 10 mL 1 01/18/20 25 Active fluticasone (Flonase) 50 MCG/ACT nasal spray Administer 2 sprays into each nostril Once per day. Shake gently. Before first use, prime pump. After use, clean tip and replace cap. 16 g 11 10/18/20 25 026 Active omeprazole (PriLOSEC) [address] capsule Take 1 capsule (20 mg) by mouth before breakfast. Do not crush or chew. 90 capsule 3 10/18/20 25 026 Active tiZANidine (Zanaflex) 2 MG tablet Take 1 tablet (2 mg) by mouth if needed in the morning, at noon, and at bedtime for muscle spasms. 60 tablet 3 10/18/20 25 Active naproxen (Naprosyn) 500 MG tablet Take [...] order (will not trigger notification to Pharmacy)) traMADol (Ultram) 50 MG tabletIndicati ons:Chronic bilateral low back pain without sciatica Take 1 tablet (50 mg) by mouth if needed in the morning and at bedtime for severe pain for up to 28 days. 56 tablet 09/29/20 25 025 Hospital, Clinic, or Other Facility Administered Medication [...] PM vs surgery pending MRI -advised contact [facility] if sx change or worsen, she [...] Encounters Date Type Department Care Team Description 11/01/2025 Results Follow-Up [facility] [address] [place] [phone] Rhett Boss MD BI MR Breast w/o Contrast Bilateral 10/25/2025 Telephone [employer] [address] [place] [phone] Rhett Boss MD 10/24/2025 9:00 AM EST Office Visit [facility] [address] [address] Rhett Boss MD Pain of both breasts (Primary Dx) 10/24/2025 Travel 10/23/2025 Travel 10/23/2025 Orders Only GENERIC EXTERNAL DATA DEPARTMENT Provider, Generic External Data 10/18/2025 11:30 AM EST Office Visit [facility] [address] [place] [phone] Emilia Bee DO Breast pain (Primary Dx) 10/18/2025 Travel 10/16/2025 Travel 10/16/[address] [phone] Emilia Bee DO Nurse Triage 09/29/2025 10:00 AM EST Telemedicine [address] [address] Emilia Bee DO Chronic migraine (Primary Dx); Chronic gastroesophageal reflux disease; Chronic bilateral low back pain without sciatica 09/29/2025 Travel 09/27/2025 Telephone [facility] [address] [place] [address] Emilia Bee, Chart Prep 09/22/2025 Patient Outreach [facility] [address] [place] [address] Emilia Bee, Pre-visit Planning (SDOH was already completed) 09/15/2025 Telephone [facility] [address] [place] [address] Emilia Bee, June recall 08/16/2025 Telephone [facility] [address], [place] [phone] Emilia Bee, Nurse Triage from Last 3 Months Immunizations [...] Sign Reading Time Taken Comments Blood Pressure 102/67 10/24/2025 8:56 AM EST Pulse 85 10/24/2025 8:56 AM EST Temperature 36.6 C (97.8 F) 10/24/2025 8:56 AM EST Respiratory Rate 18 10/23/2025 6:03 PM EST Oxygen Saturation 99% 10/24/2025 8:56 AM EST room air Inhaled Oxygen Concentration - - Weight 74.8 kg (165 lb) 10/24/2025 8:56 AM EST Height 162.6 cm (5' 4 ) 10/18/2025 11:46 AM EST Body Mass Index 28.32 10/18/2025 11:46 AM EST Plan of Treatment Health Maintenance Due Date Last Done Comments Family Planning (PISQ) 2006 HPV Vaccines (1 - 3-dose series) 2006 Hepatitis A Vaccines (1 of 2 - Risk 2-dose series) 2010 DTaP/Tdap/Td Vaccines (2 - T d or Tdap) 12/06/2023 12/06/2013 COVID-19 Vaccine ( - 2024-2 6 season) 2025 07/23/2022, 01/14/2022, 12/24/2021 Influenza [...] Procedure Name Priority Date/Time Associated Diagnosis Comments BI MR BREAST WO CONTRAST BILATERAL Routine 11/01/2025 2:53 PM EST CBC WITH AUTO DIFFERENTIAL Routine 10/23/2025 12:43 [...] Recently Relevant to Health Maintenance Results * BI MR Breast w/o Contrast Bilateral (11/01/2025 2:53 PM EST) Anatomical Region Laterality Modality Breast Bilateral Magnetic Resonan ce 11/01/2025 2:53 PM EST Narrative 11/01/2025 6:20 PM EST [address] [address] Magnetic Resonance Report Signed Patient: Sandy Connor MR #: [id number] : 1990 Acct:[id number] Age/Sex: 35 / F ADM Date: 11/01/25 Loc: .MRI Attending Dr: Rhett Boss MD Ordering Physician: Rhett Boss MD Date of Service: 11/01/25 Procedure(s): MR breast BI wo con Accession Number(s): [id number] cc: Emilia Bee DO; Rhett Boss MD Reason for Exam: bilateral breast pain, lluq mass, concerning silicione implant malposition EXAMINATION: MULTIPARAMETRIC 1.5T BILATERAL BREAST MRI WITHOUT IV CONTRAST HISTORY: 35-year-old female presents for implant evaluation. Bilateral breast pain left palpable lump. TECHNIQUE: Multiplanar T1- and T2- weighted images were acquired on a 1.5 Kaylene magnet with a breast coil, Computer generated 3D reconstruction was utilized by the radiologist interpreting the exam. COMPARISON: Comparison is made with relevant prior exams. FINDINGS: Evaluation of the breast parenchyma cannot be performed in this noncontrast study. There are bilateral normal appearing intact silicone implants without evidence of rupture. LEFT BREAST: Evaluation of the breast parenchyma cannot be performed in this noncontrast study. Within the above limitations no suspicious mass, focus or area of architectural distortion is seen within the left breast. There is no skin thickening, nipple retraction, left axillary or internal mammary lymphadenopathy. RIGHT BREAST: Evaluation of the breast parenchyma cannot be performed in this noncontrast study. Within the above limitations no suspicious mass, focus or area of architectural distortion is seen within the right breast. There is no skin thickening, nipple retraction, right axillary or internal mammary lymphadenopathy. OTHER: No suspicious abnormality is present in the visualized chest and abdomen on this noncontrast study. MR/MR breast BI wo con IMPRESSION: Patient has bilateral breast pain and left palpable lump. A diagnostic mammogram and ultrasound of the left breast in the area of focal palpable lump is recommended at this time for further evaluation. If there is bilateral focal pain or diagnostic mammogram and ultrasound is recommended at this time. Left Breast: Limited evaluation on this noncontrast study. Normal-appearing intact implants without evidence of rupture. Right Breast: Limited evaluation on this noncontrast study. Normal appearing intact implants without evidence of rupture. Recommendation: Recommend diagnostic left breast mammogram and ultrasound at this time for evaluation of left breast palpable lump and pain. If there is right breast focal pain recommend right breast diagnostic mammogram and ultrasound. Electronically signed by: Analy Pacheco DO 11/01/2025 06:17 PM EST Dictated By: Analy Pacheco DO Signed By: <Electronically signed by Analy Pacheco DO in OV> 11/01/25 1817 DD/ 1453 TD/TT: 11/01/25 1520 Dope House Operator Helper: Procedure Note Donotuseinterpreter, Image - 11/01/[address] [address] Magnetic Resonance Report Signed Patient: Sandy ConnorMR #: [id number] : 1990Acct:[id number] Age/Sex: 35 / FADM Date: 11/01/25 Loc: HO.MRI Attending Dr: Rhett Boss MD Ordering Physician: Rhett Boss MD Date of Service: 11/01/25 Procedure(s): MR breast BI wo con Accession Number(s): [id number] cc: Emilia Bee DO; Rhett Boss MD Reason for Exam: bilateral breast pain, lluq mass, concerning silicioneimplant malposition EXAMINATION: MULTIPARAMETRIC 1.5T BILATERAL BREAST MRI WITHOUT IV CONTRAST HISTORY: 35-year-old female presents for implant evaluation. Bilateral breast pain left palpable lump. TECHNIQUE: Multiplanar T1- and T2- weighted images were acquired on a 1.5 Kaylene magnet with a breast coil, Computer generated 3D reconstruction was utilized by the radiologist interpreting the exam. COMPARISON: Comparison is made with relevant prior exams. FINDINGS: Evaluation of the breast parenchyma cannot be performed in this noncontrast study. There are bilateral normal appearing intact silicone implants without evidence of rupture. LEFT BREAST: Evaluation of the breast parenchyma cannot be performed in this noncontrast study. Within the above limitations no suspicious mass, focus or area of architectural distortion is seen within the left breast. There is no skin thickening, nipple retraction, left axillary or internal mammary lymphadenopathy. RIGHT BREAST: Evaluation of the breast parenchyma cannot be performed in this noncontrast study. Within the above limitations no suspicious mass, focus or area of architectural distortion is seen within the right breast. There is no skin thickening, nipple retraction, right axillary or internal mammary lymphadenopathy. OTHER: No suspicious abnormality is present in the visualized chest and abdomen on this noncontrast study. MR/MR breast BI wo con IMPRESSION: Patient has bilateral breast pain and left palpable lump. A diagnostic mammogram and ultrasound of the left breast in the area of focal palpable lump is recommended at this time for further evaluation. If there is bilateral focal pain or diagnostic mammogram and ultrasound is recommended at this time. Left Breast: Limited evaluation on this noncontrast study. Normal-appearing intact implants without evidence of rupture. Right Breast: Limited evaluation on this noncontrast study. Normal appearing intact implants without evidence of rupture. Recommendation: Recommend diagnostic left breast mammogram and ultrasound at this time for evaluation of left breast palpable lump and pain. If there is right breast focal pain recommend right breast diagnostic mammogram and ultrasound. Electronically signed by: Analy Pacheco DO 11/01/2025 06:17 PM EST Dictated By: Analy Pacheco DO Signed By: <Electronically signed by Analy Pacheco DO in OV> 11/01/25 1817 DD/ 1453 TD/TT: 11/01/25 1520 Dope House Operator Helper: Rhett Boss MD [facility] [place] [place] MRI PROCEDURES Final Result * (ABNORMAL) CBC auto differential (10/23/2025 12:43 PM EST) White Blood Count 5.8 4.8 - 10.8 X10*3/uL [facility] Red Blood Count 4.39 4.20 - 5.50 X10*6/uL [facility] Hemoglobin 13.7 12.0 - 16.0 g/dl [facility] Hematocrit 40.7 37.0 - 47.0 % [facility] Mean Corpuscular Volume 92.7 80.0 - 98.0 fL [facility] Mean Corpuscular Hemoglobin 31.2 27.0 - 33.0 pg [facility] Mean Corpuscular HGB Conc 33.7 31.0 - 35.0 g/dl [facility] Red Cell Distribution Width 12.2 11.0 - 16.0 % [facility] Platelet Count 281 160 - 400 X10*3/uL [facility] Mean Platelet Volume 9.3(L) 9.4 - 12.3 fL [facility] Neutrophils Percent Auto 55.6 45 - 73 % [facility] Imm Gran Pct Auto 0.2 0.0 - 0.4 % [facility] Lymphocytes Percent Auto 35.2 20 - 40 % [facility] Monocytes Percent Auto 5.9 2 - 11 % [facility] Eosinophils Percent Auto 2.8 0 - 4 % [facility] Basophils Percent Auto 0.3 0 - 2 % [facility] NRBC Pct Auto 0.0 0.0 - 0.2 /100WBC [facility] Neutrophils Absolute Auto 3.2 2.0 - 8.3 x10*3/uL [facility] Imm Gran Abs Auto 0.01 0.00 - 0.03 X10*3/uL [facility] Lymphocytes Absolute Auto 2.0 1.2 - 4.9 X10*3/uL [facility] Monocytes Absolute Auto 0.3 0.1 - 1.2 X10*3/uL [facility] Eosinophils Absolute Auto 0.2 0.0 - 0.4 X10*3/uL [facility] Basophils Absolute Auto 0.0 0.0 - 0.2 X10*3/uL [facility] NRBC Abs Auto 0.000 0.0 - 0.012 X10*3/uL [facility] 10/23/2025 12:4 3 PM EST 10/23/2025 12:48 PM EST us Generic External Data Provider LAB BLOOD ORDERAB LES Final Result [facility] [address] [place] [phone] * High Sensitivity Troponin I (10/23/2025 12:42 PM EST) TROPONIN I HIGH SENSITIVITY <2.7 <3.5 - 17.0 ng/L [facility] Comment:The [place] high sens itivity Troponin-I results should beused in conjunction with other diagnostic information suchas ECG, clinical observations and information, and patientsymptoms to aid in the diagnosis of NH. 10/23/2025 12:4 2 PM EST 10/23/2025 12:48 PM EST Generic External Data Provider LAB BLOOD ORDERAB LES Final Result Performing Organization Address City/[facility]/ZIP Co de Phone Number [facility] [address] [place] [phone] * hCG, Total, Quantitative (10/23/2025 12:42 PM EST) Pathologist [facility] HCG Quantitative <2 mIU/mL [facility] Comment:Weeks post LMP Appro ximate hCG(Last Menstrual Period) Range (mIU/ml)3 - 4 weeks 9 - 1304 - 5 weeks 75 - 2,6005 - 6 weeks 850 - 20,8006 - 7 weeks 4000 - 100,2007 - 12 weeks 11,500 - 289,86057 - 16 weeks 18,300 - 137,38900 - 29 weeks (2nd trimester) 1,400 - 53,20019 - 41 weeks (3rd trimester) 940 - [...] ORDERAB LES Final Result Performing Organization Address [facility] Co de Phone Number [facility] [address] [place] [phone] * (ABNORMAL) Comprehensive Metabolic Panel (10/23/2025 12:42 PM EST) Pathologist [facility] Sodium 139 135 - 145 mmol/L [facility] Potassium 4.2 3.3 - 5.1 mmol/L [facility] Chloride 107 96 - 108 mmol/L [facility] Carbon Dioxide 28 22 - 29 mmol/L [facility] Anion Gap 8(L) 12 - 20 [facility] Urea Nitrogen (BUN) 13 9 - 16 mg/dL [facility] Creatinine, Serum 0.67 0.5 - 1.4 mg/dL [facility] Creatinine Clr Calc Pharmacy 117.6 [facility] Comment:Provided height and weight: 162.56 cm,75.4 kg.eGFR (calculated from the MDRD study equation) and eCrCl(calculated from the Cockcroft-Gault equation) are based ondifferent parameters and may not yield comparable results.If eCrCl result is absurd, please check patient'sheight/weight. Estimated Glomerular Filt Rate >60 [facility] Comment:Chronic Kidney Disea se: Estimated GFR < 60 mL/min/1.08b6Enrgmj Kidney Disease: Estimated GFR < 15 mL/min/1.73m2 Glucose 83 60 - 115 mg/dL [facility] Calcium 9.4 8.4 - 10.2 mg/dL [facility] Bilirubin, Total 0.3 0.0 - 1.0 mg/dL [facility] Aspartate Amino Transferase 39(H) 5 - 31 U/L [facility] Alanine Aminotransferase 58(H) 0 - 31 U/L [facility] Total Protein 7.7 6.5 - 8.0 g/dL [facility] Albumin Level 4.5 3.5 - 5.0 g/dL [facility] Alkaline Phosphatase 73 39 - 117 U/L [facility] 10/23/2025 12:4 2 PM EST 10/23/2025 12:48 PM EST us Generic External Data Provider LAB BLOOD ORDERAB LES Final Result [facility] [address] [place] [phone] * (ABNORMAL) Lipid Panel, Standard (03/21/2024 11:53 AM EDT) Triglycerides 66 <150 mg/dL [facility] Comment:Desirable Triglyceri de: less than 150 mg/dLBorderline High Triglyceride 150-199 mg/dLHigh Triglyceride: 200-499 mg/dLVery High Triglyceride: greater than or equal to 5OO mg/dL Cholesterol 140 <200 mg/dL [facility] Comment:Desirable Cholestero l: less than 200 mg/dLBorderline High Cholesterol: 200-239 mg/dLHigh Cholesterol: greater than 239 mg/dL LDL Cholesterol Calculated 88 <100 mg/dL [facility] Comment:Desirable LDL: less than 100 mg/dLNear Optimal/Above Optimal LDL: 110- 129 mg/dLBorderline High LDL: 130-159 mg/dLHigh LDL: 160-189 mg/dLVery High LDL: greater than or equal to 190 mg/dL HDL Cholesterol 39(L) >40 mg/dL [facility] Comment:Desirable HDL: great er than 40 mg/dL Note: This HDL assay may give artificially low results in patients with liver disease. Blood Venous blood specimen / Unknown 03/21/2024 11:53 AM EDT 03/21/2024 1:02 PM EDT Emilia Bee DO LAB BLOOD ORDERABLES Final R esult [facility] [address] [place] [phone] * Hepatitis C Antibody with Reflex to HCV, RNA, Quantitative, Real-Time PCR (03/21/2024 11:14 AM EDT) Hepatitis C Antibody Nonreactive Nonreactive [facility] Comment:Antibodies to HCV no t detected; does not exclude early acuteHCV infection. Blood Venous blood specimen / Unknown 03/21/2024 11:14 AM EDT 03/21/2024 1:02 PM EDT Emilia Bee DO LAB BLOOD ORDERABLES Final R esult Performing Organization Address [facility]/ZIP Co de Phone Number [facility] [address] [place] [phone] * HIV-1/2 Antigen and Antibodies, Fourth Generation, with Reflexes (03/21/2024 11:14 AM EDT) HIV AB/AG Nonreactive Nonreactive [facility] Comment:HIV-1 p24 Ag and/or HIV-1/HIV-2 Ab not detected.A test result that is nonreactive does not exclude thepossibility of exposure to or infection with HIV-1 and/orHIV-2. Nonreactive results in this assay for individualswith prior exposure to HIV-1 and/or HIV-2 may be due toantigen and antibody levels that are below the limit ofdetection of this assay.[facility] HIV Ag/Ab Combo assay result andsupplemental assay results should be interpreted inconjunction with the patient's clinical presentation,history and other laboratory results. If the results areinconsistent with clinical evidence, additional testing issuggested to confirm the result. Blood Venous blood specimen / Unknown 03/21/2024 11:14 AM EDT 03/21/2024 1:02 PM EDT Emilia Bee [email or web address] LAB BLOOD ORDERABLES Final R estacho Performing Organization Address [facility]/ZIP Co de Phone Number [facility] [address] [place] [phone] * HPV mRNA E6/E7 (07/25/2021 9:14 AM EDT) HPV nRNA E6/E7 Not Detected Not Detected [facility] Comment: Methodology: Claims Coordinator-Mediated Amplification This assay detects E6/E7 viral messenger RNA (mRNA) from 14 high-risk HPV types (16,18,31,33,35,39,45,51,52,56,58,59,66,68). The analytical performance characteristics of this assay have been determined by [employer]. The modifications have not been cleared or approved by the FDA. This assay has been validated pursuant to the CLIA regulations and is used for clinical purposes. For additional information, please refer to http://education.[employer]/faq/BUJ812l2 (This link if provided for information/ educational purposes only.) 07/25/2021 9:14 AM EDT Dixie JALLOH LAB BLOOD ORDERABLES Jana l Result [facility] [address] [place] [address] * Pap Smear (07/25/2021 12:00 AM EDT) Swab Dixie JALLOH LAB CYTOLOGY ORDERABLES F inal Result [address], [place] [phone] from Last 3 Months or Most Recently Relevant to Health Maintenance Insurance C3 Care Teams Qa Test Analyst Relationship Specialty Start Date End Date Emilia Bee DO [address] [place] [address] PCP - General Family Medicine 10/10/20
== END 2025-11-01 14:47 | disposition home or self-care (01) ==
LOC: HO.MRI 14:46
PROVIDERS: PCP Family Medicine; Visit Provider Family Medicine
DX: N64.4 Mastodynia (principal)
CPT/HCPCS: 77047

== ENCOUNTER → 2025-11-01 14:53 | Outpatient (BNV) | payer MEDICAID, SELFPAY | PROVIDERS: PCP Family Medicine; Visit Provider Internal Medicine | DX: N63.22 Unspecified lump in the left breast, upper inner quadrant (principal) | CPT/HCPCS: 77047 ==